=== PATIENT | male | born 2000 | race Caucasian/White ===

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

== ENCOUNTER 2021-01-17 16:07 | Emergency (ER) | payer SELFPAY ==
[2021-01-17 16:17] VITALS: BP 134/100; PULSE 121; TEMP 37.4; O2SAT 100
--- NOTE | 2021-01-17 16:27 | ED.GENADUL_ITS ---
Discharge Plan Disposition Patient Disposition: HOME Condition: Improving Discharge Details Chief Complaint: Fever Clinical Impression: COVID-19 Primary Care Provider: Unknown,Unknown ED Provider: Randell Cole Home Meds and New Rx's Prescriptions: No Action epinephrine [EpiPen 2-Carlos] 0.3 MG/0.3 ML auto-injector 0.3 mg IM ONCE PRNQty: 1 RF: 1 ondansetron 4 mg tablet,disintegrating 4 mg PO Q8H PRN (Reason: nausea and vomiting) Qty: 10 RF: 0 diphenhydramine HCl [Benadryl] 25 MG capsule 25 mg PO Q6H Qty: 25 RF: 0 Discharge Instructions Instructions: COVID-19 (Coronavirus Disease 2019) (ED), COVID-19: Slow the Coronavirus Spread (ED) Additional Instructions: You were seen in the emergency department today for evaluation of fevers and aches. This is most likely due to COVID-19. Your test will come back in a few days. Stay well-hydrated at home. Take 650 mg of acetaminophen (Tylenol) every 6 hours as needed for discomfort. You can also take 400 mg of ibuprofen every 6 hours as needed. return to the emergency department immediately if you develop any Difficulty breathing, passing out, or for any other concerning or worsening symptoms at all. Medical Decision Making This patient is a 20-year-old male who presents to the emergency department with chief complaint of fever, chills, body aches. Based on the history, exam, this is most likely due to COVID-19. Chest x-ray does not reveal pneumonia. Blood work is fairly unremarkable except for a mild elevation of lactic acid. This is likely due to the fact that he has not had much to drink today and is likely dehydrated. He was given IV fluids, ketorolac, and will be discharged home. He will be provided return precautions, discharge instructions and will need to isolate at home until his Covid test comes back, which will likely come back positive then he will need to isolate until asymptomatic. He agrees with this outpatient treatment plan. He did not meet criteria to get monoclonal antibodies at this time. Medical Records Medical records reviewed: Yes I reviewed the patient's medical records. Lab Data Lab results reviewed: Yes I reviewed the patient's lab results. HPI This patient is a 20-year-old male who presents to the emergency department with chief complaint of fever and chills that started this morning.Nothing has made him feel better or worse. He describes aches across his whole body. He denies dysuria, nausea, vomiting, diarrhea. He is not vaccinated for Covid. Symptoms are severe. They do not radiate. They have been constant since they started. General Date/Time Provider Initiated Documentation: 01/17/21 16:12 . Related Data Home Medications Medication Instructions Recorded Confirmed epinephrine [EpiPen 2-Carlos] 0.3 mg IM ONCE PRN #1 pack 10/08/16 08/03/19 diphenhydramine HCl [Benadryl] 25 mg PO Q6H #25 cap 09/27/17 08/03/19 ondansetron 4 mg PO Q8H PRN #10 tab 02/23/19 08/03/19 Previous Rx's Medication Instructions Recorded diphenhydramine HCl [Benadryl] 25 mg PO Q6H #25 cap 09/27/17 ondansetron 4 mg PO Q8H PRN #10 tab 02/23/19 Allergies Allergy/AdvReac Type Severity Reaction Status Date / Time venom-honey bee Allergy Severe BREATHING Unverified 01/17/21 16:23 [bee venom (honey bee)] PROBLEMS General Stated Complaint: Fever LEOBARDO: 3 Review of Systems All systems reviewed & are unremarkable except as noted in HPI and below PFSH Medical History Bee sting allergy swelling and resp symptoms- has epipen Closed fracture of nasal bones closed reduction 12/07/2009 Constipation Dental caries Fracture of metacarpal base of right hand, closed (06/01/19) Right wrist fracture Surgical History Circumcision History of rhinoplasty Repair, Dental Caries Family History Father Asthma Other Personal history of malignant neoplasm Other Personal history of malignant neoplasm Grandfather Cerebrovascular disease Social History Smoking/Tobacco Use Status: Never Smoking risk assessment performed?: Yes Alcohol Intake: current Alcohol Intake frequency: holidays/special occasions only Alcohol type: beer Drug use: Never Substance use type: does not use Current gender identity: male Do you feel safe at home: Yes Do you feel safe in your relationship?: Yes Exam Const General: cooperative and no acute distress Orientation: alert and awake HENMT Head: normal to inspection and normocephalic Eyes EOM: EOM intact bilaterally Neck Neck: full ROM and no meningeal signs Resp Effort & Inspection: normal respiratory effort Auscultation: clear to auscultation bilaterally Cardio Rate: regular rate Rhythm: regular rhythm Heart Sounds: S1 normal, S2 normal, no murmurs and no rubs Pulses: radial pulses present GI Palpation: soft, no hepatosplenomegaly, nontender and other Skin General skin exam: other (warm, dry.) Neuro General: patient alert, patient awake and moves all extremities Extrem General: normal to inspection and full ROM Course Vital Signs Vital signs: Vital Signs Temperature 37.4 C 01/17/21 16:17 Pulse 121 H 01/17/21 16:17 Blood Pressure 134/100 H 01/17/21 16:17 Pulse Oximetry 100 01/17/21 16:17 Temperature 37.4 C 01/17/21 16:17 Pulse 121 H 01/17/21 16:17 Respiratory Effort Non-Labored 01/17/21 16:20 Blood Pressure 134/100 H 01/17/21 16:17 Blood Pressure Position Sitting 01/17/21 16:17 Pulse Oximetry 100 01/17/21 16:17 Oxygen Delivery Method Room Air 01/17/21 16:17 Oxygen Flow Rate 0 01/17/21 16:17 Pain Level 8 01/17/21 16:17 Lab/Test Results Lab/Test Results: 01/17/21 16:24 Blood Blood Culture - Pending 01/17/21 16:24 Blood Blood Culture - Pending PAWSS Have you Been Recently Intoxicated or Drunk Within the Last 30 days?: Yes Have you Ever Experienced Previous Episodes of Alcohol Withdrawal?: No Have you ever Experienced Withdrawal Seizures?: No Have you ever Experienced Delirium Tremens(DT)s?: No Have you ever undergone Alcohol Rehabilitation Treatment (i.e, inpt ot outpatient treatment programs)?: No Have you ever Experienced Blackouts?: No Have you ever Combined Alcohol with other Downers within the last 90 days?: No Have you ever Combined Alcohol with any other Substance of Abuse during the last 90 days?: No Positive Blood Alcohol level on Presentation? [PCS.BAL]: No Evidence of Increased Autonomic Activity (i.e. HR>120, tremor, sweating, agitation, nausea)?: No Result: 1
--- NOTE | 2021-01-17 16:30 | DI.RAD_ITS ---
Exam(s) XR PORTABLE CHEST AP EXAM: XR PORTABLE CHEST AP CLINICAL HISTORY: fever.. TECHNIQUE: 2D digital imaging was performed. COMPARISON: CR RIGHT SHOULDER COMPLETE from 04/10/2016 FINDINGS: Heart size is upper normal. The mediastinum is not widened. Lungs are clear. No infiltrates nor obvious pleural effusions. IMPRESSION: No acute pulmonary findings on this single AP portable view of the chest. DATA REPOSITORY: RADIATION DOSE DELIVERED: All CT scans at this facility use at least one of these dose optimization techniques: automated exposure control; mA and/or kV adjustment per patient size (includes targeted e xams where dose is matched to clinical indication); or iterative reconstruction.
[2021-01-17] MEDS: Normal Saline 1,000 ML 1000 ML IV (16:54)
[2021-01-17 16:55] LABS: Abs Immature Grans 0.03 10^3/uL (0.0-0.06); Absolute Basophil Count 0.07 10^3/uL (0.0-0.2); Absolute Eosinophil Count 0.29 10^3/uL (0.0-0.7); Absolute Lymphocyte Count 1.04 10^3/uL (1.2-3.4); Absolute Monocyte Count 1.04 10^3/uL (0.1-0.8); Absolute Neutrophil Count 7.14 10^3/uL (1.2-6.7); Basophils % 0.7; HCT 49.3 % (40.0-50.0); HGB 17.7 g/dL (13.5-17.5); Immature Grans % 0.3; Lymphocytes % 10.8; MCHC 35.9 % (32.0-36.0); MCV 83.6 fL (80-95); MPV 10.8 fL (8.0-11.0); Monocytes % 10.8; Neutrophils % 74.4; Nucleated RBC 0 %; Platelet Count 193 10^3/uL (130-400); RDW 11.4 % (11.8-14.1); RDW-SD 34.5 fL; WBC 9.61 10^3/uL (4.4-10.8)
[2021-01-17] MEDS: Normal Saline Flush 10 ML SYR IVP (16:55)
[2021-01-17] MEDS: Ketorolac 15 MG/ML VIAL IVP (16:55)
[2021-01-17 17:07] LABS: ALT 24 U/L (16-63); AST 21 U/L (15-37); Albumin 4.8 g/dL (3.4-5.0); Alkaline Phosphatase 87 U/L (46-116); Anion Gap 12.2 mmol/L (3-11); BUN 10 mg/dL (7-18); Bilirubin, Total 2.6 mg/dL (0.2-1.0); CO2 26.8 mmol/L (21.0-32.0); CREATININE 0.9 mg/dL (0.70-1.30); Calcium 9.6 mg/dL (8.5-10.1); Chloride 101 mmol/L (98-107); Glucose 89 mg/dL (74-106); Sodium 140 mmol/L (136-145); Total Protein 8.6 g/dL (6.4-8.2)
[2021-01-17 18:05] LABS: Bilirubin Negative (Negative); Blood Negative (Negative); Clarity Clear (Clear); Glucose Negative (Negative); Ketones Negative (Negative); Leukocyte Esterase Negative (Negative); Nitrite Negative (Negative); pH 8.5 (5-8)
--- NOTE | 2021-01-17 18:21 | DI.VRAD_ITS ---
PROCEDURE INFORMATION: Exam: XR Chest Exam date and time: 01/17/2021 4:34 PM Age: 20 years old Clinical indication: Fever TECHNIQUE: Imaging protocol: XR of the chest. Views: 1 view. COMPARISON: CT CHEST/ABD WO 10/26/2018 9:05 PM FINDINGS: Lungs: No mass. No consolidation. Pleural spaces: Unremarkable. No pleural effusion. No pneumothorax. Heart/Mediastinum: Unremarkable cardiomediastinal silhouette. No cardiomegaly. Bones/joints: Unremarkable. IMPRESSION: No evidence for acute cardiopulmonary disease. Dictated and Authenticated by: Zach Powers MD. Ordering:GAYLE Mejias MD
[2021-01-17 18:36] VITALS: BP 124/67; PULSE 86; RESP 16; O2SAT 96
[2021-01-19 10:27] LABS: COVID-19 RT-PCR UVMMC Result Negative (Negative)
--- NOTE | 2021-01-19 11:33 | NUR.NOTE ---
Nursing Note: Returned call from pt regarding COVID status- pt'd identity confirmed, and was made aware that labs have not yet been resulted. Pt aware he will receive call when they have resulted.
--- NOTE | 2021-01-20 10:32 | NUR.NOTE ---
negative flu and covid result relayed to pt via phone.Nursing Note:
== END 2021-01-17 18:39 | disposition home or self-care (01) ==
PROVIDERS: Emergency Provider Emergency Medicine
DX: U07.1 COVID-19 (principal); M79.10 Myalgia, unspecified site; R50.9 Fever, unspecified; Z20.822 Contact with and (suspected) exposure to COVID-19
CPT/HCPCS: 36415; 80053; 87040; 87449; 87880; 96361; 96374; 99284; U0003; 71045; 81003; 83605; 85025; 87081; 99285; J1885

== ENCOUNTER 2021-06-30 17:39 | Emergency (ER) | payer SELFPAY ==
[2021-06-30 17:48] VITALS: BP 111/67; PULSE 110; RESP 18; TEMP 37.5; O2SAT 99
[2021-06-30 18:35] LABS: Lactate 1.1 mmol/L (0.6-1.4)
[2021-06-30 18:36] LABS: Abs Immature Grans 0.01 10^3/uL (0.0-0.06); Absolute Basophil Count 0.04 10^3/uL (0.0-0.2); Absolute Eosinophil Count 0.02 10^3/uL (0.0-0.7); Absolute Lymphocyte Count 0.31 10^3/uL (1.2-3.4); Absolute Monocyte Count 0.79 10^3/uL (0.1-0.8); Absolute Neutrophil Count 2.52 10^3/uL (1.2-6.7); Basophils % 1.1; Eosinophils % 0.5; HCT 43.5 % (40.0-50.0); HGB 15.4 g/dL (13.5-17.5); Immature Grans % 0.3; Lymphocytes % 8.4; MCH 29.9 pg (27.0-33.0); MCHC 35.4 % (32.0-36.0); MCV 84.5 fL (80-95); MPV 10.8 fL (8.0-11.0); Monocytes % 21.4; Neutrophils % 68.3; Nucleated RBC 0 %; Platelet Count 155 10^3/uL (130-400); RBC 5.15 10^6/uL (4.36-5.78); RDW 11.5 % (11.8-14.1); RDW-SD 35.2 fL; WBC 3.69 10^3/uL (4.4-10.8)
[2021-06-30] MEDS: Normal Saline 1,000 ML 1000 ML IV (18:42)
[2021-06-30] MEDS: Ondansetron 4 MG/2 ML VIAL IVP (18:43)
[2021-06-30 18:44] VITALS: RESP 18
[2021-06-30] MEDS: Normal Saline Flush 10 ML SYR IVP (18:44)
[2021-06-30] MEDS: ACETAMINOPHEN 1,000 MG/100 ML BTL 400 MG IVPB (18:44)
[2021-06-30 18:47] LABS: Lipase 60 U/L (73-393); Magnesium 1.9 mg/dL (1.8-2.4)
[2021-06-30 18:52] LABS: COVID-19 PCR Negative (Negative); Influenza A PCR Positive (Negative); Influenza B PCR Negative (Negative); RSV PCR Negative (Negative)
[2021-06-30 18:54] LABS: Bilirubin Negative (Negative); Blood Negative (Negative); Clarity Clear (Clear); Glucose Negative (Negative); Ketones 15 mg/dL (Negative); Leukocyte Esterase Negative (Negative); Nitrite Negative (Negative); Specific Gravity 1.015 (1.005-1.025); Urobilinogen 0.2 EU/dL (Up TO 0.2)
[2021-06-30 18:57] LABS: ALT 23 U/L (16-63); AST 16 U/L (15-37); Albumin 4.4 g/dL (3.4-5.0); Alkaline Phosphatase 64 U/L (46-116); Anion Gap 9.5 mmol/L (3-11); BUN 9 mg/dL (7-18); CO2 26.5 mmol/L (21.0-32.0); Calcium 8.7 mg/dL (8.5-10.1); Chloride 103 mmol/L (98-107); Glucose 98 mg/dL (74-106); Potassium 3.4 mmol/L (3.5-5.1); Sodium 139 mmol/L (136-145); Total Protein 7.7 g/dL (6.4-8.2)
--- NOTE | 2021-06-30 19:07 | ED.GENADUL_ITS ---
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 If you have any significant worsening of symptoms such as uncontrollable vomiting, inability to tolerate fluid intake, or further concerns feel free to return to emergency department for reassessment. Otherwise you should improve over the next week if you take no medication and if you take the prescribed antiviral med typically people start showing signs of improvement within 48 hours. You will need to take this medication immediately tomorrow otherwise it will be ineffective as it is time sensitive. If not improving in the next week please follow-up with your primary care provider for reassessment. Stand Alone Forms: Work Release Discharge Data Discharge Date/Time-TO BE ENTERED AT DEPARTURE: 06/30/21 20:02 Medical Decision Making Patient presenting to the emergency department with chief complaint of fever, body aches, and some vomiting that is started today. Patient does state that he did take home Covid test which was negative denies other sick contacts. Physical exam shows a acutely ill 21-year-old male that is nontoxic, tachycardic, otherwise nonfocal unremarkable examination. Suspect viral etiology but given tachycardia, fever, and vomiting we will plan on checking labs and viral swab. Review of labs show positive influenza A, decrease WBC and lymphocyte which is consistent with diagnosis, normal lactate, slightly low potassium and mild elevated bilirubin otherwise nondiagnostic labs. Reassessed patient and patient does state improvement of symptoms after receiving IV Tylenol and fluids. Discussed with patient risk versus benefit of antiviral therapy and patient was prescribed Xofluza. Return and follow cautions were discussed. After di scussion of diagnosis and plan of care patient has no further needs, questions, or concerns and states clear understanding to return to the emergency department for any worsening symptoms. Lab Data Lab results reviewed: Yes I reviewed the patient's lab results. Labs: Laboratory Tests Range/Units 06/30/21 06/30/21 06/30/21 18:10 18:28 18:28 WBC (4.4-10.8) 10^3/uL RBC (4.36-5.78) 10^6/uL Hgb (13.5-17.5) g/dL Hct (40.0-50.0) % MCV (80-95) fL MCH (27.0-33.0) pg MCHC (32.0-36.0) % RDW (11.8-14.1) % Plt Count (130-400) 10^3/uL MPV (8.0-11.0) fL Immature Gran % Neutrophils % Lymphocytes % Monocytes % Eosinophils % Basophils % Nucleated RBC % % Absolute Neutrophils (1.2-6.7) 10^3/uL Absolute Lymphocytes (1.2-3.4) 10^3/uL Absolute Monocytes (0.1-0.8) 10^3/uL Absolute Eosinophils (0.0-0.7) 10^3/uL Absolute Basophils (0.0-0.2) 10^3/uL VBG Lactate (0.6-1.4) mmol/L 1.1 Sodium (136-145) mmol/L Potassium (3.5-5.1) mmol/L Chloride (98-107) mmol/L Carbon Dioxide (21.0-32.0) mmol/L Anion Gap (3-11) mmol/L BUN (7-18) mg/dL Creatinine (0.70-1.30) mg/dL Estimated GFR/1.73 m2 (mL/min/1.73m2) Glucose (74-106) mg/dL Calcium (8.5-10.1) mg/dL Magnesium (1.8-2.4) mg/dL 1.9 Total Bilirubin (0.2-1.0) mg/dL AST (15-37) U/L ALT (16-63) U/L Alkaline Phosphatase (46-116) U/L Total Protein (6.4-8.2) g/dL Albumin (3.4-5.0) g/dL Lipase (73-393) U/L 60 Urine Color (Yellow) Urine Clarity (Clear) Urine pH (5-8) Ur Specific [place] (1.005-1.025) Urine Protein (Negative) mg/dL Urine Ketones (Negative) mg/dL Urine Blood (Negative) Urine Nitrite (Negative) Urine Bilirubin (Negative) Urine Urobilinogen (Up TO 0.2) EU/dL Ur Leukocyte Esterase (Negative) Urine Glucose (Negative) mg/dL COVID-19 Source Not Applicable SARS-CoV-2 (PCR) (Negative) Negative Influenza Type A (PCR) (Negative) Positive A Influenza Type B (PCR) (Negative) Negative RSV (PCR) (Negative) Negative Range/Units 06/30/21 06/30/21 06/30/21 18:28 18:28 18:42 WBC (4.4-10.8) 10^3/uL 3.69 L RBC (4.36-5.78) 10^6/uL 5.15 Hgb (13.5-17.5) g/dL 15.4 Hct (40.0-50.0) % 43.5 MCV (80-95) fL 84.5 MCH (27.0-33.0) pg 29.9 MCHC (32.0-36.0) % 35.4 RDW (11.8-14.1) % 11.5 L Plt Count (130-400) 10^3/uL 155 MPV (8.0-11.0) fL 10.8 Immature Gran % 0.3 Neutrophils % 68.3 Lymphocytes % 8.4 Monocytes % 21.4 Eosinophils % 0.5 Basophils % 1.1 Nucleated RBC % % 0 Absolute Neutrophils (1.2-6.7) 10^3/uL 2.52 Absolute Lymphocytes (1.2-3.4) 10^3/uL 0.31 L Absolute Monocytes (0.1-0.8) 10^3/uL 0.79 Absolute Eosinophils (0.0-0.7) 10^3/uL 0.02 Absolute Basophils (0.0-0.2) 10^3/uL 0.04 VBG Lactate (0.6-1.4) mmol/L Sodium (136-145) mmol/L 139 Potassium (3.5-5.1) mmol/L 3.4 L Chloride (98-107) mmol/L 103 Carbon Dioxide (21.0-32.0) mmol/L 26.5 Anion Gap (3-11) mmol/L 9.5 BUN (7-18) mg/dL 9 Creatinine (0.70-1.30) mg/dL 1.0 Estimated GFR/1.73 m2 (mL/min/1.73m2) >= 60.00 Glucose (74-106) mg/dL 98 Calcium (8.5-10.1) mg/dL 8.7 Magnesium (1.8-2.4) mg/dL Total Bilirubin (0.2-1.0) mg/dL 2.0 H AST (15-37) U/L 16 ALT (16-63) U/L 23 Alkaline Phosphatase (46-116) U/L 64 Total Protein (6.4-8.2) g/dL 7.7 Albumin (3.4-5.0) g/dL 4.4 Lipase (73-393) U/L Urine Color (Yellow) Yellow Urine Clarity (Clear) Clear Urine pH (5-8) 7.0 Ur Specific [place] (1.005-1.025) 1.015 Urine Protein (Negative) mg/dL Negative Urine Ketones (Negative) mg/dL 15 H Urine Blood (Negative) Negative Urine Nitrite (Negative) Negative Urine Bilirubin (Negative) Negative Urine Urobilinogen (Up TO 0.2) EU/dL 0.2 Ur Leukocyte Esterase (Negative) Negative Urine Glucose (Negative) mg/dL Negative COVID-19 Source SARS-CoV-2 (PCR) (Negative) Influenza Type A (PCR) (Negative) Influenza Type B (PCR) (Negative) RSV (PCR) (Negative) HPI General Mode of arrival: ambulatory . Date/Time Provider Initiated Documentation: 06/30/21 17:57 . Limitations to Documentation: no limitations . Information obtained by: patient . History of Present Illness 21 year old M presents to the emergency department with the chief complaint of Fever chills body aches and vomiting, described as moderate, with intensity rated at 8. Quality is described as aching, Patient reports no radiation. Patient started experiencing this day(s) (1) and it has been constant. improves with No relieving factors improve symptom(s), No exacerbating factors reported . Patient notes fever/chills, loss of appetite, malaise and nausea/vomiting; denies chest pain, cough and rash. Patient did receive the following treatments prior to arrival, NSAID Related Data Home Medications Medication Instructions Recorded Confirmed epinephrine 0.3 mg/0.3 mL 0.3 mg IM ONCE PRN #1 pack 10/08/16 06/30/21 injection, auto-injector (EpiPen 2-Carlos) diphenhydramine HCl 25 mg capsule 25 mg PO Q6H #25 cap 09/27/17 08/03/19 (Benadryl) baloxavir marboxil 40 mg tablet 40 mg PO ONCE #1 tab 06/30/21 (Xofluza) ondansetron 4 mg disintegrating 4 mg PO Q8H PRN #10 tab 06/30/21 tablet Previous Rx's Medication Instructions Recorded diphenhydramine HCl 25 mg capsule 25 mg PO Q6H #25 cap 09/27/17 (Benadryl) baloxavir marboxil 40 mg tablet 40 mg PO ONCE #1 tab 06/30/21 (Xofluza) ondansetron 4 mg disintegrating 4 mg PO Q8H PRN #10 tab 06/30/21 tablet Allergies Allergy/AdvReac Type Severity Reaction Status Date / Time venom-honey bee Allergy Severe BREATHING Unverified 06/30/21 17:51 [bee venom (honey bee)] PROBLEMS General Stated Complaint: GenMedical LEOBARDO: 3 Review of Systems Constitutional Constitutional: Reports body ache(s), Reports chills, Reports fever(s), Reports headache(s) and Reports malaise ENT Ears, Nose, Mouth, and Throat: Reports as per HPI, Denies ear discharge, Denies otalgia, Reports headache(s), Reports nasal congestion, Reports nasal discharge, Denies neck pain, Denies sore throat and Denies throat swelling Cardiovascular Cardiovascular: Denies chest pain and Denies dyspnea Respiratory Respiratory: Reports cough and Denies dyspnea Gastrointestinal Gastrointestinal: Denies abdominal pain, Reports nausea and Reports vomiting Musculoskeletal Musculoskeletal: Denies joint swelling and Denies neck pain Integumentary/Breasts Skin/Breast: Denies rash Neurologic Neurologic: Reports headache(s) Allergic/Immunologic Allergic/Immunologic: Denies throat swelling PFSH All Active Problems (Updated 06/30/21 @ 19:43 by Ash Zuluaga NP) COVID-19 (Acute) Influenza A (Acute) Fracture of metacarpal base of right hand, closed (Acute 06/01/19) Routine child health exam (Acute 08/05/11) Normal weight, pediatric, BMI 5th to 84th percentile for age (Acute 11/03/14) Bee sting allergy (Acute 11/19/16) Closed displaced fracture of middle phalanx of left little finger (Acute 12/10/17) Medical History Bee sting allergy swelling and resp symptoms- has epipen Closed fracture of nasal bones closed reduction 12/07/2009 Constipation Dental caries Right wrist fracture Surgical History Circumcision History of rhinoplasty Repair, Dental Caries Family History Father Asthma Other Personal history of malignant neoplasm Other Personal history of malignant neoplasm Grandfather Cerebrovascular disease Social History Smoking/Tobacco Use Status: Never Smoking risk assessment performed?: Yes Alcohol Intake: current Alcohol Intake frequency: holidays/special occasions only Alcohol type: beer Drug use: Rarely Substance use type: marijuana Current gender identity: male Do you feel safe at home: Yes Do you feel safe in your relationship?: Yes Exam Const General: cooperative, comfortable, no acute distress and ill appearing acutely Orientation: alert and awake [facility] Head: normal to inspection, normocephalic and atraumatic Ears: hearing grossly normal bilaterally Mouth: no muffled voice Neck Neck: normal visual inspection, full ROM, no meningeal signs and trachea midline Resp Effort & Inspection: normal respiratory effort and able to speak in complete sentences Auscultation: clear to auscultation bilaterally Cardio Rate: tachycardic Rhythm: regular rhythm Heart Sounds: S1 normal, S2 normal, normal S1 and S2, no click, no gallops, no murmurs and no rubs GI Inspection: normal to inspection Palpation: soft, not firm, no guarding, not rigid and nontender Auscultation: normal bowel sounds Skin General skin exam: no rashes or lesions noted and dry skin (warm) Neuro General: patient alert, patient awake, patient oriented x3, gait normal and moves all extremities Cognition: normal cognition Speech: speech normal Course Vital Signs Vital signs: Vital Signs Temperature 37.5 C 06/30/21 17:48 Pulse 110 H 06/30/21 17:48 Respiratory Rate 18 06/30/21 17:48 Blood Pressure 111/67 06/30/21 17:48 Pulse Oximetry 99 06/30/21 17:48 Temperature 37.5 C 06/30/21 17:48 Temperature Source Temporal Artery Scan 06/30/21 17:48 Pulse 110 H 06/30/21 17:48 Respiratory Rate 18 06/30/21 18:44 Respiratory Effort Non-Labored 06/30/21 18:44 Respiratory Depth Normal 06/30/21 18:44 Respiratory Pattern Normal 06/30/21 18:44 Blood Pressure 111/67 06/30/21 17:48 Blood Pressure Position Sitting 06/30/21 17:48 Pulse Oximetry 99 06/30/21 17:48 Oxygen Delivery Method Room Air 06/30/21 17:48 Oxygen Flow Rate 0 06/30/21 17:48 Lab/Test Results Lab/Test Results: Laboratory Tests Range/Units 06/30/21 06/30/21 06/30/21 18:10 18:28 18:28 WBC (4.4-10.8) 10^3/uL RBC (4.36-5.78) 10^6/uL Hgb (13.5-17.5) g/dL Hct (40.0-50.0) % MCV (80-95) fL MCH (27.0-33.0) pg MCHC (32.0-36.0) % RDW (11.8-14.1) % Plt Count (130-400) 10^3/uL MPV (8.0-11.0) fL Immature Gran % Neutrophils % Lymphocytes % Monocytes % Eosinophils % Basophils % Nucleated RBC % % Absolute Neutrophils (1.2-6.7) 10^3/uL Absolute Lymphocytes (1.2-3.4) 10^3/uL Absolute Monocytes (0.1-0.8) 10^3/uL Absolute Eosinophils (0.0-0.7) 10^3/uL Absolute Basophils (0.0-0.2) 10^3/uL VBG Lactate (0.6-1.4) mmol/L 1.1 Sodium (136-145) mmol/L Potassium (3.5-5.1) mmol/L Chloride (98-107) mmol/L Carbon Dioxide (21.0-32.0) mmol/L Anion Gap (3-11) mmol/L BUN (7-18) mg/dL Creatinine (0.70-1.30) mg/dL Estimated GFR/1.73 m2 (mL/min/1.73m2) Glucose (74-106) mg/dL Calcium (8.5-10.1) mg/dL Magnesium (1.8-2.4) mg/dL 1.9 Total Bilirubin (0.2-1.0) mg/dL AST (15-37) U/L ALT (16-63) U/L Alkaline Phosphatase (46-116) U/L Total Protein (6.4-8.2) g/dL Albumin (3.4-5.0) g/dL Lipase (73-393) U/L 60 Urine Color (Yellow) Urine Clarity (Clear) Urine pH (5-8) Ur Specific [place] (1.005-1.025) Urine Protein (Negative) mg/dL Urine Ketones (Negative) mg/dL Urine Blood (Negative) Urine Nitrite (Negative) Urine Bilirubin (Negative) Urine Urobilinogen (Up TO 0.2) EU/dL Ur Leukocyte Esterase (Negative) Urine Glucose (Negative) mg/dL COVID-19 Source Not Applicable SARS-CoV-2 (PCR) (Negative) Negative Influenza Type A (PCR) (Negative) Positive A Influenza Type B (PCR) (Negative) Negative RSV (PCR) (Negative) Negative Range/Units 06/30/21 06/30/21 06/30/21 18:28 18:28 18:42 WBC (4.4-10.8) 10^3/uL 3.69 L RBC (4.36-5.78) 10^6/uL 5.15 Hgb (13.5-17.5) g/dL 15.4 Hct (40.0-50.0) % 43.5 MCV (80-95) fL 84.5 MCH (27.0-33.0) pg 29.9 MCHC (32.0-36.0) % 35.4 RDW (11.8-14.1) % 11.5 L Plt Count (130-400) 10^3/uL 155 MPV (8.0-11.0) fL 10.8 Immature Gran % 0.3 Neutrophils % 68.3 Lymphocytes % 8.4 Monocytes % 21.4 Eosinophils % 0.5 Basophils % 1.1 Nucleated RBC % % 0 Absolute Neutrophils (1.2-6.7) 10^3/uL 2.52 Absolute Lymphocytes (1.2-3.4) 10^3/uL 0.31 L Absolute Monocytes (0.1-0.8) 10^3/uL 0.79 Absolute Eosinophils (0.0-0.7) 10^3/uL 0.02 Absolute Basophils (0.0-0.2) 10^3/uL 0.04 VBG Lactate (0.6-1.4) mmol/L Sodium (136-145) mmol/L 139 Potassium (3.5-5.1) mmol/L 3.4 L Chloride (98-107) mmol/L 103 Carbon Dioxide (21.0-32.0) mmol/L 26.5 Anion Gap (3-11) mmol/L 9.5 BUN (7-18) mg/dL 9 Creatinine (0.70-1.30) mg/dL 1.0 Estimated GFR/1.73 m2 (mL/min/1.73m2) >= 60.00 Glucose (74-106) mg/dL 98 Calcium (8.5-10.1) mg/dL 8.7 Magnesium (1.8-2.4) mg/dL Total Bilirubin (0.2-1.0) mg/dL 2.0 H AST (15-37) U/L 16 ALT (16-63) U/L 23 Alkaline Phosphatase (46-116) U/L 64 Total Protein (6.4-8.2) g/dL 7.7 Albumin (3.4-5.0) g/dL 4.4 Lipase (73-393) U/L Urine Color (Yellow) Yellow Urine Clarity (Clear) Clear Urine pH (5-8) 7.0 Ur Specific [place] (1.005-1.025) 1.015 Urine Protein (Negative) mg/dL Negative Urine Ketones (Negative) mg/dL 15 H Urine Blood (Negative) Negative Urine Nitrite (Negative) Negative Urine Bilirubin (Negative) Negative Urine Urobilinogen (Up TO 0.2) EU/dL 0.2 Ur Leukocyte Esterase (Negative) Negative Urine Glucose (Negative) mg/dL Negative COVID-19 Source SARS-CoV-2 (PCR) (Negative) Influenza Type A (PCR) (Negative) Influenza Type B (PCR) (Negative) RSV (PCR) (Negative) PAWSS Have you Been Recently Intoxicated or Drunk Within the Last 30 days?: Yes Have you Ever Experienced Previous Episodes of Alcohol Withdrawal?: No Have you ever Experienced Withdrawal Seizures?: No Have you ever Experienced Delirium Tremens(DT)s?: No Have you ever undergone Alcohol Rehabilitation Treatment (i.e, inpt ot outpatient treatment programs)?: No Have you ever Experienced Blackouts?: Yes Have you ever Combined Alcohol with other Downers within the last 90 days?: No Have you ever Combined Alcohol with any other Substance of Abuse during the last 90 days?: Yes Positive Blood Alcohol level on Presentation? [PCS.BAL]: No Evidence of Increased Autonomic Activity (i.e. HR>120, tremor, sweating, agitation, nausea)?: No Result: 4
[2021-06-30 20:00] VITALS: BP 111/58; PULSE 111; RESP 18; O2SAT 97
[2021-06-30] MEDS: Potassium Chloride 10 MEQ TABCR PO (20:01)
== END 2021-06-30 20:02 | disposition home or self-care (01) ==
PROVIDERS: Emergency Provider Nurse Practitioner Family
DX: J10.1 Influenza due to other identified influenza virus with other respiratory manifestations (principal); Z20.822 Contact with and (suspected) exposure to COVID-19; R50.9 Fever, unspecified
CPT/HCPCS: 80053; 83690; 87637; 99283; 81003; 83605; 83735; 85025; J0131; J2405

== ENCOUNTER 2022-06-03 12:40 | Emergency (ER) | payer SELFPAY ==
[2022-06-03 12:50] VITALS: BP 136/80; PULSE 94; RESP 20; TEMP 36.9; O2SAT 98
[2022-06-03 13:01] VITALS: BP 128/87; PULSE 80; O2SAT 100
[2022-06-03] MEDS: Lactated Ringers 1,000 ML 1000 ML IV (13:24)
[2022-06-03] MEDS: Ondansetron 4 MG/2 ML VIAL IVP (13:24)
[2022-06-03 13:31] VITALS: BP 113/71; PULSE 72; O2SAT 100
[2022-06-03 13:31] LABS: Abs Immature Grans 0.02 10^3/uL (0.0-0.06); Absolute Basophil Count 0.05 10^3/uL (0.0-0.2); Absolute Eosinophil Count 0.07 10^3/uL (0.0-0.7); Absolute Lymphocyte Count 1.36 10^3/uL (1.2-3.4); Absolute Monocyte Count 0.76 10^3/uL (0.1-0.8); Absolute Neutrophil Count 2.29 10^3/uL (1.2-6.7); Basophils % 1.1; Eosinophils % 1.5; HCT 47.9 % (40.0-50.0); HGB 17.3 g/dL (13.5-17.5); Immature Grans % 0.4; Lymphocytes % 29.9; MCH 29.9 pg (27.0-33.0); MCHC 36.1 % (32.0-36.0); MCV 83 fL (80-95); Monocytes % 16.7; Neutrophils % 50.4; Platelet Count 186 10^3/uL (130-400); RBC 5.78 10^6/uL (4.36-5.78); RDW 11.9 % (11.8-14.1); RDW-SD 35.8 fL; WBC 4.55 10^3/uL (4.4-10.8)
--- NOTE | 2022-06-03 13:33 | DI.CT_ITS ---
Exam(s) CT CHEST/ABD/PEL W EXAM: CT CHEST/ABD/PEL W CLINICAL HISTORY: left sided abd pain severe, vomiting, diarrhea TECHNIQUE: Imaging Protocol: Axial computed tomography images with coronal and sagittal reformatted images were created and reviewed CONTRAST MATERIAL: Intravenous: Omnipaque 350 contrast volume:90 mL Oral: No COMPARISON: CT CT thoracic lumbar spine wo from 10/26/[address] CHEST/ABD WO from 10/26/2018 FINDINGS: CHEST: Tracheobronchial tree: Patent where visualized. Pulmonary parenchyma: No consolidation or dominant measurable mass. No architectural distortion. Visualized thyroid gland: Unremarkable. Mediastinum and [place]ira: No dominant adenopathy or fluid collection. The esophagus is unremarkable. Pleura: No effusion or pneumothorax. Heart: The heart is not dilated. No coronary artery calcifications are seen. No pericardial effusion. Pulmonary arteries: Not adequately opacified for evaluation of pulmonary emboli. 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 The thoracic aorta is of normal caliber. Lymph nodes: Within normal limits. Soft tissues: Unremarkable. Bones:Within normal limits for the patient's age. ABDOMEN: Liver: Normal density. No measurable mass. Portal, Superior Mesenteric, and Splenic Veins: Unremarkable. Gallbladder and Biliary Tract: No radiodense calculus or dilation. Pancreas: Normal density, no abnormal calcifications or inflammatory process. Spleen: The spleen is enlarged measuring 14 cm. Adrenals: No masses seen. Kidneys: Normal size, contour and axis. No radiodense stones or obstructive uropathy. No masses seen. Abdominal Aorta: Abdominal portion non-dilated. Bowel: No obstruction or bowel wall thickening. No evidence of appendicitis. Peritoneal Cavity: No abdominal ascites. Mild ileum enlarged mesenteric lymph nodes which can be see n with mesenteric adenitis. No free air. Lymph Nodes: Within normal limits. Bones: Within normal limits for the patient's age. Soft Tissues: Unremarkable. PELVIS: Bladder: Symmetric distention, no gross wall thickening. Reproductive Organs: Unremarkable as visualized. Lymph Nodes: Within normal limits. Bones: Within normal limits. IMPRESSION: 1. No acute pulmonary process. 2. Mildly enlarged mesenteric lymph nodes which can be seen with mesenteric adenitis. 3. Mild splenomegaly. 4. Findings were discussed with Dr. Bingham at 3:49 p.m. on 06/03/2022. RADIATION DOSE DELIVERED: 1,068.54mGy.cm Total DLP DATA REPOSITORY: All CT scans at this facility are submitted to the National Radiology Data Registry (NRDR) Dose Index Registry (DIR) with the [employer] (A[employer]). RADIATION OPTIMIZATION: All CT scans at this facility use at least one of these dose optimization te chniques: automated exposure control; mA and/or kV adjustment per patient size (includes targeted exa ms where dose is matched to clinical indication); or iterative reconstruction.
[2022-06-03 13:45] VITALS: BP 117/72; PULSE 72; O2SAT 97
[2022-06-03 13:45] LABS: ALT 34 U/L (16-63); AST 27 U/L (15-37); Albumin 4.2 g/dL (3.4-5.0); Alkaline Phosphatase 73 U/L (46-116); Anion Gap 8.5 mmol/L (3-11); BUN 10 mg/dL (7-18); Bilirubin, Total 2.3 mg/dL (0.2-1.0); CO2 27.5 mmol/L (21.0-32.0); CREATININE 0.9 mg/dL (0.70-1.30); Calcium 9.1 mg/dL (8.5-10.1); Chloride 102 mmol/L (98-107); Estimated GFR 123.84 (mL/min/1.73m2); Glucose 97 mg/dL (74-106); Lipase 24 U/L (16-77); Potassium 3.8 mmol/L (3.5-5.1); Sodium 138 mmol/L (136-145); Total Protein 7.8 g/dL (6.4-8.2)
--- NOTE | 2022-06-03 13:49 | ED.GENADUL_ITS ---
Discharge Plan Disposition Patient Disposition: Home Condition: Stable Discharge Details Clinical Impression: Nausea & vomiting, Abdominal pain Primary Care Provider: None,None ED Provider: Christopher Bingham Home Meds and New Rx's Prescriptions: Continued epinephrine [EpiPen 2-Carlos] 0.3 MG/0.3 ML auto-injector 0.3 mg IM ONCE PRNQty: 1 Rx Instructions: use per allergy plan/drapery hand, one for home and one for school Xofluza 40 mg tablet 40 mg PO ONCE Qty: 1 0RF Rx Instructions: as a single dose ondansetron 4 mg tablet,disintegrating 4 mg PO Q8H PRN (Reason: nausea and vomiting) Qty: 10 0RF diphenhydramine HCl [Benadryl] 25 MG capsule 25 mg PO Q6H Qty: 25 0RF Discharge Instructions Instructions: Acute Nausea and Vomiting (ED), Abdominal Pain (ED) Additional Instructions: Please drink small amounts of fluid often to stay hydrated. Take nausea medicine as prescribed. Please contact your primary care physician to arrange follow-up. Return to the ER immediately for any worsening or new concerning symptoms. Stand Alone Forms: Work Release Medical Decision Making [id number] --22-year-old male here with four days of severe abdominal pain and associated nausea, vomiting and diarrhea. Abdomen tender left lower quadrant. Plan to obtain CT of the abdomen pelvis to assess for acute surgical pathology including perforated diverticulitis. Patient appears dehydrated. I will give IV fluid bolus. Zofran IV for nausea. 1545 --CT of the chest abdomen pelvis interpreted by radiology: Spleen measures upper limit of normal, some mesenteric lymphadenopathy, otherwise negative. Patient reassessed and nausea improved. Patient patient completed IV fluid bolus plan for p.o. challenge and discharge with outpatient follow-up with PCP. -- Usual customary discharge instructions were reviewed with the patient. All results were discussed. Lab Data Lab results reviewed: Yes I reviewed the patient's lab results. Lab results narrative: Laboratory Tests Range/Units 06/03/22 06/03/22 13:20 13:20 WBC (4.4-10.8) 10^3/uL 4.55 RBC (4.36-5.78) 10^6/uL 5.78 Hgb (13.5-17.5) g/dL 17.3 Hct (40.0-50.0) % 47.9 MCV (80-95) fL 83 MCH (27.0-33.0) pg 29.9 MCHC (32.0-36.0) % 36.1 H RDW (11.8-14.1) % 11.9 Plt Count (130-400) 10^3/uL 186 MPV (8.0-11.0) fL 11.0 Immature Gran % 0.4 Neutrophils % 50.4 Lymphocytes % 29.9 Monocytes % 16.7 Eosinophils % 1.5 Basophils % 1.1 Nucleated RBC % (0.0-0.3) % 0.0 Absolute Neutrophils (1.2-6.7) 10^3/uL 2.29 Absolute Lymphocytes (1.2-3.4) 10^3/uL 1.36 Absolute Monocytes (0.1-0.8) 10^3/uL 0.76 Absolute Eosinophils (0.0-0.7) 10^3/uL 0.07 Absolute Basophils (0.0-0.2) 10^3/uL 0.05 Sodium (136-145) mmol/L 138 Potassium (3.5-5.1) mmol/L 3.8 Chloride (98-107) mmol/L 102 Carbon Dioxide (21.0-32.0) mmol/L 27.5 Anion Gap (3-11) mmol/L 8.5 BUN (7-18) mg/dL 10 Creatinine (0.70-1.30) mg/dL 0.9 Est GFR (CKD-EPI 2020) (mL/min/1.73m2) 123.84 Glucose (74-106) mg/dL 97 Calcium (8.5-10.1) mg/dL 9.1 Total Bilirubin (0.2-1.0) mg/dL 2.3 H AST (15-37) U/L 27 ALT (16-63) U/L 34 Alkaline Phosphatase (46-116) U/L 73 Total Protein (6.4-8.2) g/dL 7.8 Albumin (3.4-5.0) g/dL 4.2 Lipase (16-77) U/L 24 HPI General Mode of arrival: ambulatory . Date/Time Provider Initiated Documentation: 06/03/22 12:58 . Limitations to Documentation: no limitations . Information obtained by: patient . HPI Narrative: 22-year-old male presents with chief complaint of abdominal pain. Patient notes abdominal pain started 4 days ago in the middle the night. Pain has persisted. Pain localized diffusely but worse on the left abdomen. He has associated nausea, vomiting and diarrhea over the same period of time. He states recently has been dry heaving has not been able to keep any fluid down. No associated fever. Related Data Home Medications Medication Instructions Recorded Confirmed epinephrine 0.3 mg/0.3 mL 0.3 mg IM ONCE PRN ##1 10/08/16 06/03/22 injection, auto-injector (EpiPen 2-Carlos) diphenhydramine HCl 25 mg capsule 25 mg PO Q6H #25 caps 09/27/17 06/03/22 (Benadryl) baloxavir marboxil 40 mg tablet 40 mg PO ONCE #1 tab 06/30/21 06/03/22 (Xofluza) ondansetron 4 mg disintegrating 4 mg PO Q8H PRN nausea and 06/03/22 tablet vomiting #10 tabs Previous Rx's Medication Instructions Recorded diphenhydramine HCl 25 mg capsule 25 mg PO Q6H #25 caps 09/27/17 (Benadryl) baloxavir marboxil 40 mg tablet 40 mg PO ONCE #1 tab 06/30/21 (Xofluza) ondansetron 4 mg disintegrating 4 mg PO Q8H PRN nausea and 06/03/22 tablet vomiting #10 tabs Allergies Allergy/AdvReac Type Severity Reaction Status Date / Time venom-honey bee Allergy Severe BREATHING Unverified 06/03/22 11:47 [bee venom (honey bee)] PROBLEMS General Stated Complaint: Abd Prob LEOBARDO: 3 Review of Systems All systems reviewed & are unremarkable except as noted in HPI and below Constitutional Constitutional: Denies fever(s) Gastrointestinal Gastrointestinal: Reports as per HPI PFSH All Active Problems (Updated 06/03/22 @ 15:51 by Christopher Bingham MD) COVID-19 (Acute) Nausea & vomiting (Acute) Abdominal pain (Acute) Fracture of metacarpal base of right hand, closed (Acute 06/01/19) Routine child health exam (Acute 08/05/11) Normal weight, pediatric, BMI 5th to 84th percentile for age (Acute 11/03/14) Bee sting allergy (Acute 11/19/16) Closed displaced fracture of middle phalanx of left little finger (Acute 11/22 12/09) Medical History Bee sting allergy swelling and resp symptoms- has epipen Closed fracture of nasal bones closed reduction 12/07/2009 Constipation Dental caries Right wrist fracture Surgical History Circumcision History of rhinoplasty Repair, Dental Caries Family History Father Asthma Other Personal history of malignant neoplasm Other Personal history of malignant neoplasm Grandfather Cerebrovascular disease Social History Smoking/Tobacco Use Status: Never Smoking risk assessment performed?: Yes Alcohol Intake: current Alcohol Intake frequency: holidays/special occasions only Alcohol type: beer Drug use: Rarely Substance use type: marijuana Current gender identity: male Do you feel safe at home: Yes Do you feel safe in your relationship?: Yes Exam Const General: cooperative, no acute distress and other (fatigued) HENMT Mouth: mucous membranes dry Eyes Conjunctivae: normal conjunctivae Sclera: normal sclerae Neck Neck: trachea midline Resp Auscultation: clear to auscultation bilaterally Cardio Rate: regular rate and not tachycardic Rhythm: regular rhythm GI Palpation: soft, not firm, no guarding, no masses, no pulsatile masses, not rigid and tender in the LLQ Auscultation: normal bowel sounds Skin General skin exam: no rashes or lesions noted Neuro General: patient alert, patient awake, patient oriented x3 and tone normal Extrem General: no edema Psych Appearance: grossly normal Mental Status: mental status grossly normal Course Vital Signs Vital signs: Vital Signs Temperature 36.9 C 06/03/22 12:50 Pulse 94 H 06/03/22 12:50 Respiratory Rate 20 06/03/22 12:50 Blood Pressure 136/80 06/03/22 12:50 Pulse Oximetry 98 06/03/22 12:50 Temperature 36.9 C 06/03/22 12:50 Temperature Source Oral 06/03/22 12:50 Pulse 94 H 06/03/22 12:50 Respiratory Rate 20 06/03/22 12:50 Respiratory Effort Normal 06/03/22 12:52 Blood Pressure 136/80 06/03/22 12:50 Blood Pressure Position Sitting 06/03/22 12:50 Pulse Oximetry 98 06/03/22 12:50 Oxygen Delivery Method Room Air 06/03/22 12:50 Oxygen Flow Rate 0 06/03/22 12:50 Pain Level 8 06/03/22 13:11 Lab/Test Results Lab/Test Results: Laboratory Tests Range/Units 06/03/22 06/03/22 13:20 13:20 WBC (4.4-10.8) 10^3/uL 4.55 RBC (4.36-5.78) 10^6/uL 5.78 Hgb (13.5-17.5) g/dL 17.3 Hct (40.0-50.0) % 47.9 MCV (80-95) fL 83 MCH (27.0-33.0) pg 29.9 MCHC (32.0-36.0) % 36.1 H RDW (11.8-14.1) % 11.9 Plt Count (130-400) 10^3/uL 186 MPV (8.0-11.0) fL 11.0 Immature Gran % 0.4 Neutrophils % 50.4 Lymphocytes % 29.9 Monocytes % 16.7 Eosinophils % 1.5 Basophils % 1.1 Nucleated RBC % (0.0-0.3) % 0.0 Absolute Neutrophils (1.2-6.7) 10^3/uL 2.29 Absolute Lymphocytes (1.2-3.4) 10^3/uL 1.36 Absolute Monocytes (0.1-0.8) 10^3/uL 0.76 Absolute Eosinophils (0.0-0.7) 10^3/uL 0.07 Absolute Basophils (0.0-0.2) 10^3/uL 0.05 Sodium (136-145) mmol/L 138 Potassium (3.5-5.1) mmol/L 3.8 Chloride (98-107) mmol/L 102 Carbon Dioxide (21.0-32.0) mmol/L 27.5 Anion Gap (3-11) mmol/L 8.5 BUN (7-18) mg/dL 10 Creatinine (0.70-1.30) mg/dL 0.9 Est GFR (CKD-EPI 2020) (mL/min/1.73m2) 123.84 Glucose (74-106) mg/dL 97 Calcium (8.5-10.1) mg/dL 9.1 Total Bilirubin (0.2-1.0) mg/dL 2.3 H AST (15-37) U/L 27 ALT (16-63) U/L 34 Alkaline Phosphatase (46-116) U/L 73 Total Protein (6.4-8.2) g/dL 7.8 Albumin (3.4-5.0) g/dL 4.2 Lipase (16-77) U/L 24
[2022-06-03] MEDS: Normal Saline - Diluent 50 ML VIAL IJ (15:14)
[2022-06-03] MEDS: Omnipaque 350 MG/ML 500 ML BTL-Imaging package IJ (15:15)
== END 2022-06-03 16:09 | disposition home or self-care (01) ==
PROVIDERS: Emergency Provider Student in an Organized Health Care Education/Training Program
DX: R11.2 Nausea with vomiting, unspecified; R10.9 Unspecified abdominal pain; R19.7 Diarrhea, unspecified
CPT/HCPCS: 36415; 74177; 80053; 83690; 96361; 96365; 96374; 96375; 99284; 99285; 71260; 85025; J2405

== ENCOUNTER 2023-03-26 16:38 | Emergency (ER) | payer BC, SELFPAY ==
[2023-03-26 16:45] VITALS: BP 122/74; PULSE 72; RESP 16; TEMP 36.9; O2SAT 98
--- NOTE | 2023-03-26 16:45 | DI.RAD_ITS ---
Exam(s) XR FINGER RT MIDDLE EXAM: XR FINGER RT MIDDLE CLINICAL HISTORY: R middle finger pain, fx vs tendon injury. TECHNIQUE: 2D digital imaging was performed of the right finger. Three views were obtained. PA/AP, oblique, and lateral views were obtained. COMPARISON: No exams were available for comparison FINDINGS: BONES: No acute fracture is present. No bony destructive lesion is seen. JOINTS: No dislocation present. SOFT TISSUE: Normal. IMPRESSION: No evidence of acute fracture, dislocation, or subluxation. DATA REPOSITORY: RADIATION DOSE DELIVERED:
--- NOTE | 2023-03-26 16:51 | W.ED.GENAD ---
HPI General Stated Complaint: Orthopedic LEOBARDO: 4 Date/Time Provider Initiated Documentation: 03/26/23 16:51. 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 Quality described as pain with movement, pain in MCP knuckle, no radiation to numbness/tingling, bruising, arm pain. Severity is described as 4-5/10. Palliating factors include martha taped with some relief. Provoking factors include nothing specific. Patient is L-hand dominant. Patient not anticoagulated. Related Data Home Medications Medication Instructions Recorded Confirmed epinephrine 0.3 mg/0.3 mL 0.3 mg IM ONCE PRN ##1 10/08/16 03/26/23 injection, auto-injector (EpiPen 2-Carlos) Allergies Allergy/AdvReac Type Severity Reaction Status Date / Time venom-honey bee Allergy Severe BREATHING Unverified 03/26/23 16:49 [bee venom (honey bee)] PROBLEMS Review of Systems All systems reviewed & are unremarkable except as noted in HPI and below PFSH All Active Problems (Updated 03/26/23 @ 17:57 by PAULIE Burger) Sprain of right middle finger (Acute) COVID-19 (Acute) Fracture of metacarpal base of right hand, closed (Acute 06/01/19) Routine child health exam (Acute 08/05/11) Normal weight, pediatric, BMI 5th to 84th percentile for age (Acute 11/03/14) Bee sting allergy (Acute 11/19/16) Closed displaced fracture of middle phalanx of left little finger (Acute 12/10/17) Medical History Bee sting allergy swelling and resp symptoms- has epipen Closed fracture of nasal bones closed reduction 12/07/2009 Constipation Dental caries Right wrist fracture Surgical History Circumcision History of rhinoplasty Repair, Dental Caries Family History Father Asthma Other Personal history of malignant neoplasm Other Personal history of malignant neoplasm Grandfather Cerebrovascular disease Social History Smoking/Tobacco Use Status: Never Smoking risk assessment performed?: Yes Alcohol Intake: current Alcohol Intake frequency: holidays/special occasions only Alcohol type: beer Drug use: Rarely Substance use type: marijuana Current gender identity: male Do you feel safe at home: Yes Do you feel safe in your relationship?: Yes Exam Narrative Exam Narrative: GENERAL APPEARANCE: Well-nourished, non-toxic, awake and alert, atraumatic, no acute distress. SKIN: Warm, pink, dry, intact, without rashes/lesions/ulcerations. HEAD: Normocephalic, atraumatic, normal hair distribution for gender/age. EYES: Pupils PERRLA, EOMs intact without nystagmus, normal conjunctiva, no exudates on lids/lashes. ENT: Nares patent, no circumoral cyanosis, no facial swelling NECK: Supple, trachea midline, painless cervical ROM. LUNGS/CHEST: Non-labored respirations, normal A/P diameter, symmetrical expansion, no chest wall deformity HEART (CV/PV): Regular rate, R radial pulse 2+, no peripheral edema, no JVD. ABDOMEN: Soft, non-distended, no guarding. MSK: Normal ROM, no swelling/deformity to bilateral UEs or LEs, moving all extremities without weakness, no cyanosis, spine midline without tenderness, normal curvature. R Hand: No overt swelling or deformity to the right third finger, he has some weakness against resistance with extension of the finger as well as medial deviation, flexion is within normal limits, there is no crepitus, nailbed is intact and sensation is intact. NEURO: Mental Status AAOx4 - alert to person, place, time, events No facial droop, no forehead involvement. Motor: No focal weakness - strength 5/5 in bilateral UEs and LEs, proximal and distal, symmetric. Sensory: sensation intact to light touch globally. Gait normal: patient ambulated without ataxia into ED room. PSYCH: euthymic, cooperative, pleasant, appropriate speech Course Vital Signs Vital signs: Vital Signs Temperature 36.9 C 03/26/23 16:45 Pulse 72 03/26/23 16:45 Respiratory Rate 16 03/26/23 16:45 Blood Pressure 122/74 03/26/23 16:45 Pulse Oximetry 98 03/26/23 16:45 Temperature 36.9 C 03/26/23 16:45 Temperature Source Oral 03/26/23 16:45 Pulse 72 03/26/23 16:45 Respiratory Rate 16 03/26/23 16:45 Respiratory Effort Normal, Non-Labored 03/26/23 16:50 Blood Pressure 122/74 03/26/23 16:45 Blood Pressure Position Sitting 03/26/23 16:45 Pulse Oximetry 98 03/26/23 16:45 Oxygen Delivery Method Room Air 03/26/23 16:45 Oxygen Flow Rate 0 03/26/23 16:45 Pain Level 6 03/26/23 16:50 Medical Decision Making This dictation utilizes [id number] dictation software and may contain unedited grammatical errors. 23 y/o M presents to ED today with a chief complaint of R 3rd finger pain, sprain type injury while working at [employer] earlier today. Patient is L-hand dominant. Patients' medical history: negative, otherwise healthy. Family and social history: noncontributory. Pertinent exam findings / vital signs include R Hand: No overt swelling or deformity to the right third finger, he has some weakness against resistance with extension of the finger as well as medial deviation, flexion is within normal limits, there is no crepitus, nailbed is intact and sensation is intact.. Differential / pathologies of concern include Tendon rupture vs severe strain/sprain, fracture. Diagnostic studies of: -XR R 3rd Finger- no acute fracture. Interventions of: -splinted, recommend ortho f/u. ED Course/Assessment/Plan: Patient presents with a right third finger injury, has weakness with extension and medial deviation against resistance of this finger without overt deformity or signs of fracture, I did place him in a baseball finger splint and recommend that he perform RICE therapy as well as therapeutic dosing of Tylenol and ibuprofen, if he has any continued weakness with range of motion I recommend he follows up with orthopedics, there was no presence of mallet finger at today's visit. Findings not consistent with complete ROM deficit, strength deficit. Disposition of Sprain of Right Middle Finger. Patient verbalized understanding of the plan and return to ED criteria and engaged in shared decision making. Medical Records Medical records reviewed: Yes I reviewed the patient's medical records. Imaging Data Radiologic Study: Imaging: X-Ray Radiologist's impression: EXAM: XR FINGER RT MIDDLE CLINICAL HISTORY: R middle finger pain, fx vs tendon injury. TECHNIQUE: 2D digital imaging was performed of the right finger. Three views were obtained. PA/AP, oblique, and lateral views were obtained. COMPARISON: No exams were available for comparison FINDINGS: BONES: No acute fracture is present. No bony destructive lesion is seen. JOINTS: No dislocation present. SOFT TISSUE: Normal. IMPRESSION: No evidence of acute fracture, dislocation, or subluxation. Quality:SDOH Health Related Social Needs: No Data to Display Discharge Plan Disposition Patient Disposition: Home Discharge Details Clinical Impression: Sprain of right middle finger Primary Care Provider: Unknown,Unknown ED Provider: Tacos Mejia Home Meds and New Rx's Prescriptions: Continued epinephrine [EpiPen 2-Carlos] 0.3 MG/0.3 ML auto-injector 0.3 mg IM ONCE PRNQty: 1 Rx Instructions: use per allergy plan/gift wrapper, one for home and one for school Discharge Instructions Instructions: Finger Sprain (ED), Tendon Rupture (ED) Additional Instructions: You were seen in the emergency department for the injury to your right third finger, this could be a severe sprain of the finger but also a tendon injury is not ruled out. I am placing you in a finger splint, please remain in this for the next few days unless you achieve total remission of pain and range of motion deficits. Rest, ice, compress and elevate the finger as often as possible, please use therapeutic dosing of Tylenol (acetamenophen) & Advil (ibuprofen) in an alternating fashion as follows: Take 1000mg of Tylenol every 6 hours without missing doses- that is 4 times per day. Senior Living in between the Tylenol dosings, take 400-600mg of Advil also on a 6 hour schedule, that is also 4 times per day. The daily maximum dosing of Tylenol is 4000mg, and the daily maximum dosing of Advil is 2400mg. This is safe to do for weeks. Please note that some common cold medications & prescription pain medications may contain acetamenophen and you need to read OTC drug labels and factor that in to maximum daily dosings. Referrals: [facility] [Provider Group]
== END 2023-03-26 18:11 | disposition home or self-care (01) ==
PROVIDERS: Emergency Provider Physician Assistant
DX: S63.612A Unspecified sprain of right middle finger, initial encounter (principal); W23.1XXA Caught, crushed, jammed, or pinched between stationary objects, initial encounter
CPT/HCPCS: 99283; 73140

== ENCOUNTER 2023-07-14 10:50 | Emergency (ER) | payer OTHER, SELFPAY ==
[2023-07-14 10:56] VITALS: BP 142/92; PULSE 87; RESP 16; TEMP 37.4; O2SAT 98
--- NOTE | 2023-07-14 11:06 | ED.GENADUL_ITS ---
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 Your x-ray shows no acute fracture. You may just have a partial sprain of one of the tendons of the rotator cuff but the only way to diagnose this if fully ruptured would be an MRI. I am providing you with a shoulder immobilizer, this will help you when getting around to keep the shoulder still but you need to remove it very frequently and perform gentle pendulum exercises to keep your shoulder from getting a condition called frozen shoulder. Please use therapeutic dosing of Tylenol (acetamenophen) & Advil (ibuprofen) in an alternating fashion as follows: Take 1000mg of Tylenol every 6 hours without missing doses- that is 4 times per day. [place] in between the Tylenol dosings, take 400-600mg of Advil also on a 6 hour schedule, that is also 4 times per day. The daily maximum dosing of Tylenol is 4000mg, and the daily maximum dosing of Advil is 2400mg. This is safe to do for weeks. Please note that some common cold medications & prescription pain medications may contain acetamenophen and you need to read OTC drug labels and factor that in to maximum daily dosings. Rest, ice, compress the shoulder frequently throughout the day, please return to the ED for any sign of complete neurovascular compromise like inability to move your arm at all, excruciating pain out of proportion that is worsening despite analgesic effects, unilateral arm swelling. I am placing you on the list to follow-up with orthopedics. Stand Alone Forms: Work Release Referrals: [facility] [Provider Group] HPI General Date/Time Provider Initiated Documentation: 07/14/23 11:05 . HPI Narrative: 23 year-old male presents to ED today by POV/ambulating with a chief complaint of R shoulder pain, L-hand dominant with onset just prior to arrival. 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 Severity is described as 8/10. Palliating factors include nothing attempted. Provoking factors include any movement. Patient not anticoagulated. Related Data Home Medications Medication Instructions Recorded Confirmed epinephrine 0.3 mg/0.3 mL 0.3 mg IM ONCE PRN ##1 10/08/16 07/14/23 injection, auto-injector (EpiPen 2-Carlos) Allergies Allergy/AdvReac Type Severity Reaction Status Date / Time venom-honey bee Allergy Severe BREATHING Unverified 07/14/23 11:00 [bee venom (honey bee)] PROBLEMS General Stated Complaint: Orthopedic LEOBARDO: 4 Review of Systems All systems reviewed & are unremarkable except as noted in HPI and below Exam Narrative Exam Narrative: GENERAL APPEARANCE: Well-nourished, non-toxic, awake and alert, atraumatic, no acute distress. SKIN: Warm, pink, dry, intact, without rashes/lesions/ulcerations. HEAD: Normocephalic, atraumatic, normal hair distribution for gender/age. EYES: Normal conjunctiva, no exudates on lids/lashes. ENT: Nares patent, no circumoral cyanosis, no facial swelling NECK: Supple, trachea midline, painless cervical ROM. LUNGS/CHEST: Non-labored respirations, normal A/P diameter, symmetrical expansion, no chest wall deformity HEART (CV/PV): Regular rate, R radial pulse 2+, no peripheral edema, no JVD. ABDOMEN: Soft, non-distended, no guarding. MSK: Normal ROM, no swelling/deformity to bilateral UEs or LEs, moving all extremities without weakness, no cyanosis, spine midline without tenderness, normal curvature. R UE: No crepitus to the shoulder, tenderness diffusely to the shoulder joint, humerus stable, able to supinate pronate, right radial pulse 2+, sensation intact in the hand with tugboat dispatcher strength 5/5, no raised appearance of the distal clavicle, no midline vertebral tenderness, pain with any movement including passive range of motion without warmth to touch, patient intolerant of special tests of rotator cuff NEURO: Mental Status AAOx4 - alert to person, place, time, events No facial droop, no forehead involvement. Motor: No focal weakness - strength 5/5 in bilateral UEs and LEs, proximal and distal, symmetric. Sensory: sensation intact to light touch globally. Gait normal: patient ambulated without ataxia into ED room. PSYCH: euthymic, cooperative, pleasant, appropriate speech Course Vital Signs Vital signs: Vital Signs Temperature 37.4 C 07/14/23 10:56 Pulse 87 07/14/23 10:56 Respiratory Rate 16 07/14/23 10:56 Blood Pressure 142/92 H 07/14/23 10:56 Pulse Oximetry 98 07/14/23 10:56 Temperature 37.4 C 07/14/23 10:56 Temperature Source Temporal Artery Scan 07/14/23 10:56 Pulse 87 07/14/23 10:56 Respiratory Rate 16 07/14/23 10:56 Respiratory Effort Normal, Non-Labored 07/14/23 11:01 Blood Pressure 142/92 H 07/14/23 10:56 Pulse Oximetry 98 07/14/23 10:56 Oxygen Delivery Method Room Air 07/14/23 10:56 Oxygen Flow Rate 0 07/14/23 10:56 Medical Decision Making This dictation utilizes [id number] dictation software and may contain unedited grammatical errors. 23 y/o M presents to ED today with a chief complaint of R shoulder pain, was working on cars- muffler fell on his arm, having R shoulder pain with a pop felt at the time - denies headstrike, no neck pain. Patient is L-hand dominant. Patients' medical history: noncontributory. Family and social history: noncontributory. Pertinent exam findings / vital signs include R UE: No crepitus to the shoulder, tenderness diffusely to the shoulder joint, humerus stable, able to supinate pronate, right radial pulse 2+, sensation intact in the hand with tugboat dispatcher strength 5/5, no raised appearance of the distal clavicle, no midline vertebral tenderness, pain with any movement including passive range of motion without warmth to touch, patient intolerant of special tests of rotator cuff. Differential / pathologies of concern include Rotator Cuff Arthropathy, AC Separation, Fracture, NOT dislocation, NOT NV compromise. Diagnostic studies of: -XR R Shoulder - no acute fracture seen. Interventions of: -sling PRN, counseled on pendulum exercises. 60mg IM Toradol ED Course/Assessment/Plan: 43-year-old male presents with right shoulder. A muffler fell on his arm, he felt a pop in the shoulder joint, he is intolerant of special tests of the shoulder at this time I do suspect rotator cuff arthropathy, counseled him on sling use as needed and icing and using adequate dosing Tylenol and ibuprofen, frequent removal of sling to perform pendulum exercises. Provided light duty work note, counseled on strict return criteria for any signs of neurovascular compromise of the right arm. Findings not consistent with fracture, dislocation, neurovascular compromise. Disposition of sprain of right shoulder. Patient verbalized understanding of the plan and return to ED criteria and engaged in shared decision making. Medical Records Medical records reviewed: Yes I reviewed the patient's medical records. Imaging Data Radiologic Study: Attestation: I personally reviewed and interpreted this imaging study as follows: Imaging: X-Ray Radiologist's impression: EXAM: XR SHOULDER RT COMPLETE 2+V CLINICAL HISTORY: R shoulder pain, felt a pop. TECHNIQUE: 2D digital imaging was performed of the right shoulder. Five images were obtained. AP, Grashey, Y-view and axillary views were obtained. COMPARISON: No exams were available for comparison FINDINGS: BONES: No acute fracture is present. No bony destructive lesion is seen. JOINTS: No dislocation present. The joint spaces are well maintained. SOFT TISSUE: Normal. IMPRESSION: Unremarkable radiographs of the right shoulder. Quality:SDOH Health Related Social Needs: No Data to Display PFSH All Active Problems (Updated 07/14/23 @ 12:19 by PAULIE Burger) Sprain of right shoulder (Acute) COVID-19 (Acute) Fracture of metacarpal base of right hand, closed (Acute 06/01/19) Routine child health exam (Acute 08/05/11) Normal weight, pediatric, BMI 5th to 84th percentile for age (Acute 11/03/14) Bee sting allergy (Acute 11/19/16) Closed displaced fracture of middle phalanx of left little finger (Acute 12/10/17) Medical History Bee sting allergy swelling and resp symptoms- has epipen Closed fracture of nasal bones closed reduction 12/07/2009 Constipation Dental caries Right wrist fracture Surgical History Circumcision History of rhinoplasty Repair, Dental Caries Family History Father Asthma Other Personal history of malignant neoplasm Other Personal history of malignant neoplasm Grandfather Cerebrovascular disease Social History Smoking/Tobacco Use Status: Never Smoking risk assessment performed?: Yes Alcohol Intake: current Alcohol Intake frequency: holidays/special occasions only Alcohol type: beer Drug use: Rarely Substance use type: marijuana Current gender identity: male Do you feel safe at home: Yes Do you feel safe in your relationship?: Yes PAWSS Have you Been Recently Intoxicated or Drunk Within the Last 30 days?: Yes Have you Ever Experienced Previous Episodes of Alcohol Withdrawal?: No Have you ever Experienced Withdrawal Seizures?: No Have you ever Experienced Delirium Tremens(DT)s?: No Have you ever undergone Alcohol Rehabilitation Treatment (i.e, inpt ot ou tpatient treatment programs)?: No Have you ever Experienced Blackouts?: No Have you ever Combined Alcohol with other Downers within the last 90 days?: No Have you ever Combined Alcohol with any other Substance of Abuse during the last 90 days?: No Result: 1
[2023-07-14] MEDS: Ketorolac 60 MG/2 ML VIAL IM (11:40)
--- NOTE | 2023-07-14 11:55 | DI.RAD_ITS ---
Exam(s) XR SHOULDER RT COMPLETE 2+V EXAM: XR SHOULDER RT COMPLETE 2+V CLINICAL HISTORY: R shoulder pain, felt a pop. TECHNIQUE: 2D digital imaging was performed of the right shoulder. Five images were obtained. AP, Grashey, Y-view and axillary views were obtained. COMPARISON: No exams were available for comparison FINDINGS: BONES: No acute fracture is present. No bony destructive lesion is seen. JOINTS: No dislocation present. The joint spaces are well maintained. SOFT TISSUE: Normal. IMPRESSION: Unremarkable radiographs of the right shoulder. DATA REPOSITORY: RADIATION DOSE DELIVERED:
[2023-07-14 12:31] VITALS: RESP 16; TEMP 37.4; O2SAT 98
== END 2023-07-14 12:36 | disposition home or self-care (01) ==
LOC: ER 12:34
PROVIDERS: Emergency Provider Physician Assistant
DX: S43.401A Unspecified sprain of right shoulder joint, initial encounter (principal); X50.9XXA Other and unspecified overexertion or strenuous movements or postures, initial encounter; Y93.89 Activity, other specified; Y92.89 Other specified places as the place of occurrence of the external cause
CPT/HCPCS: 96372; 99283; 73030; J1885

== ENCOUNTER 2023-08-21 21:44 | Emergency (ER) | payer BC, SELFPAY ==
[2023-08-21] VITALS (14 sets, daily range): BP systolic 139–160; BP diastolic 95–120; PULSE 88–125; RESP 12–23; TEMP 36.3; O2SAT 97–99
--- NOTE | 2023-08-21 21:30 | RT.EKG_ITS ---
APPROVED REPORT Exam: Resting ECG Reason for Exam: chest pain Patient Location: E HR:115 bpm ECG Measurements Heart Rate 115 AXIS MT 151 P 72 QRSd 90 QRS 90 QT 330 T 53 QTc 458 Conclusion Sinus tachycardia...rate> 99 sinus tachycardia, normal axis, normal intervals, non ischemic
[2023-08-21 22:07] LABS: Abs Immature Grans 0.03 10^3/uL (0.0-0.06); Absolute Basophil Count 0.05 10^3/uL (0.0-0.2); Absolute Eosinophil Count 0.12 10^3/uL (0.0-0.7); Absolute Lymphocyte Count 2.87 10^3/uL (1.2-3.4); Absolute Monocyte Count 0.54 10^3/uL (0.1-0.8); Basophils % 0.7 %; Eosinophils % 1.6 %; HCT 43.5 % (40.0-50.0); HGB 15.9 g/dL (13.5-17.5); Immature Grans % 0.4 %; Lymphocytes % 37.7 %; MCH 30.3 pg (27.0-33.0); MCHC 36.6 % (32.0-36.0); MCV 83 fL (80-95); MPV 11.3 fL (8.0-11.0); Monocytes % 7.1 %; Neutrophils % 52.5 %; Platelet Count 200 10^3/uL (130-400); RBC 5.25 10^6/uL (4.36-5.78); RDW 11.5 % (11.8-14.1); RDW-SD 34.8 fL; WBC 7.61 10^3/uL (4.4-10.8)
--- NOTE | 2023-08-21 22:14 | ED.GENADUL_ITS ---
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 Return to the emergency department for any worsening symptoms otherwise follow-up close with your primary care physician Stand Alone Forms: Work Release HPI General Date/Time Provider Initiated Documentation: 08/21/23 21:50 . HPI Narrative: 23-year-old male presents brought by EMS for evaluation of rapid heart rate, patient was getting out of the shower felt a rapid heart rate and rapid breathing also had paresthesias to bilateral upper extremities feel as if he was going to pass out. Patient denies history of cardiac disease or thromboembolic disease. No risk factors. History of prior panic attacks in the past at a younger age. Denies any acute psychosocial stressors at home. Denies drug or alcohol use currently Related Data Home Medications Medication Instructions Recorded Confirmed epinephrine 0.3 mg/0.3 mL 0.3 mg IM ONCE PRN ##1 10/08/16 07/22/23 injection, auto-injector (EpiPen 2-Carlos) Allergies Allergy/AdvReac Type Severity Reaction Status Date / Time venom-honey bee Allergy Severe BREATHING Unverified 07/22/23 13:55 [bee venom (honey bee)] PROBLEMS General Stated Complaint: GenMedical LEOBARDO: 3 Review of Systems Narrative: Review of Systems Constitutional: negative Eyes: negative ENT: negative Cardiovascular: Rapid heart rate Respiratory: negative Gastrointestinal: negative : negative Musculoskeletal: negative Skin: negative Neurologic: negative Psych: Anxiety Exam Narrative Exam Narrative: Physical Examination General: alert, awake, cooperative, appears extremely anxious HEENT: normocephalic, atraumatic; PERRL, EOM intact, conjunctiva normal; no nasal discharge; moist mucous membranes, oral and pharyngeal mucosa normal, tolerating secretions Neck: supple, trachea midline; full ROM Chest: normal to inspection Respiratory: normal respiratory effort, speaking in full sentences, clear to auscultation, no wheezing, rales or rhonchi Cardiac: Tachycardia, regular rhythm, S1S2 intact, no murmurs rubs or gallops GI: abdomen soft, non-tender, non-distended; no palpable mass or hepatosplenomegaly Skin: no lesions, rashes or trauma appreciated Neuro: AAOx3, normal speech, moving all extremities Extremities: No peripheral edema Psych: Anxiety, hyperventilating Course Vital Signs Vital signs: Vital Signs Temperature 36.3 C L 08/21/23 21:44 Pulse 107 H 08/21/23 21:44 Respiratory Rate 18 08/21/23 21:44 Blood Pressure 154/120 H 08/21/23 21:44 Pulse Oximetry 98 08/21/23 21:44 Temperature 36.3 C L 08/21/23 21:44 Temperature Source Temporal Artery Scan 08/21/23 21:44 Pulse 107 H 08/21/23 21:44 Respiratory Rate 18 08/21/23 21:49 Respiratory Effort Normal, Non-Labored 08/21/23 21:49 Respiratory Depth Normal 08/21/23 21:49 Respiratory Pattern Normal 08/21/23 21:49 Blood Pressure 154/120 H 08/21/23 21:44 Pulse Oximetry 98 08/21/23 21:44 Oxygen Delivery Method Room Air 08/21/23 21:44 Oxygen Flow Rate 0 08/21/23 21:44 Pain Level 7 08/21/23 21:44 Lab/Test Results Lab/Test Results: Laboratory Tests Range/Units 08/21/23 21:51 WBC (4.4-10.8) 10^3/uL 7.61 RBC (4.36-5.78) 10^6/uL 5.25 Hgb (13.5-17.5) g/dL 15.9 Hct (40.0-50.0) % 43.5 MCV (80-95) fL 83 MCH (27.0-33.0) pg 30.3 MCHC (32.0-36.0) % 36.6 H RDW (11.8-14.1) % 11.5 L Plt Count (130-400) 10^3/uL 200 MPV (8.0-11.0) fL 11.3 H Immature Gran % % 0.4 Neutrophils % % 52.5 Lymphocytes % % 37.7 Monocytes % % 7.1 Eosinophils % % 1.6 Basophils % % 0.7 Nucleated RBC % (0.0-0.3) % 0.0 Absolute Neutrophils (1.2-6.7) 10^3/uL 4.00 Absolute Lymphocytes (1.2-3.4) 10^3/uL 2.87 Absolute Monocytes (0.1-0.8) 10^3/uL 0.54 Absolute Eosinophils (0.0-0.7) 10^3/uL 0.12 Absolute Basophils (0.0-0.2) 10^3/uL 0.05 Medical Decision Making 23-year-old male presents brought by EMS for evaluation of rapid heart rate, patient was getting out of the shower felt a rapid heart rate and rapid breathing also had paresthesias to bilateral upper extremities feel as if he was going to pass out. Patient denies history of cardiac disease or thromboembolic disease. No risk factors. History of prior panic attacks in the past at a younger age. Denies any acute psychosocial stressors at home. Denies drug or alcohol use currently. Patient noted to be tachycardic and hypertensive on arrival afebrile nontoxic, patient is hyperventilating, lungs clear bilaterally speaking full sentences tolerating secretions, no external signs of trauma no signs of infection, lower suspicion for intoxication, high clinical suspicion for panic attack lower suspicion for malignant arrhythmia, EKG sinus tachycardia normal axis normal intervals nonischemic. Will obtain basic metabolic panel, CBC, magnesium level, TSH urinalysis/U tox, screening chest x-ray, trial of benzodiazepine and fluids close reassessment. 23: 06 resting comfortably no acute distress heart rate 93 bpm blood pressure is improved, patient much more calm, upon further history patient endorses drinking 3 large monster energy drinks throughout the day today into this evening. High clinical suspicion for anxiety reaction in the setting of over caffeination. Patient family here to bring him home Quality:SDOH Health Related Social Needs: No Data to Display PFSH All Active Problems (Updated 08/21/23 @ 23:08 by Bruce Dawson MD) Caffeine adverse reaction (Acute) Instability of right shoulder joint (Acute) Tear of right glenoid labrum (Acute 07/14/23) COVID-19 (Acute) Fracture of metacarpal base of right hand, closed (Acute 06/01/19) Routine child health exam (Acute 05/14/12) Normal weight, pediatric, BMI 5th to 84th percentile for age (Acute 11/03/14) Bee sting allergy (Acute 11/19/16) Closed displaced fracture of middle phalanx of left little finger (Acute 12/10/17) Medical History Bee sting allergy swelling and resp symptoms- has epipen Closed fracture of nasal bones closed reduction 12/07/2009 Constipation Dental caries Right wrist fracture Surgical History Circumcision History of rhinoplasty Repair, Dental Caries Family History Father Asthma Other Personal history of malignant neoplasm Other Personal history of malignant neoplasm Grandfather Cerebrovascular disease Social History Smoking/Tobacco Use Status: Never Smoking risk assessment performed?: Yes Alcohol Intake: current Alcohol Intake frequency: 0-2 drinks per day Alcohol type: beer Drug use: Rarely Substance use type: marijuana Current gender identity: male Do you feel safe at home: Yes Do you feel safe in your relationship?: Yes PAWSS Have you Been Recently Intoxicated or Drunk Within the Last 30 days?: No Have you Ever Experienced Previous Episodes of Alcohol Withdrawal?: No Have you ever Experienced Withdrawal Seizures?: No Have you ever Experienced Delirium Tremens(DT)s?: No Have you ever undergone Alcohol Rehabilitation Treatment (i.e, inpt ot outpatient treatment programs)?: No Have you ever Experienced Blackouts?: No Have you ever Combined Alcohol with other Downers within the last 90 days?: No Have you ever Combined Alcohol with any other Substance of Abuse during the last 90 days?: No Positive Blood Alcohol level on Presentation? [PCS.BAL]: No Evidence of Increased Autonomic Activity (i.e. HR>120, tremor, sweating, agitation, nausea)?: No Result: 0
[2023-08-21 22:18] LABS: Magnesium 1.8 mg/dL (1.8-2.4)
[2023-08-21 22:22] LABS: ALT 51 U/L (16-63); AST 25 U/L (15-37); Albumin 4.4 g/dL (3.4-5.0); Alkaline Phosphatase 85 U/L (46-116); Anion Gap 13.4 mmol/L (3-11); BUN 10 mg/dL (7-18); Bilirubin, Total 1.5 mg/dL (0.2-1.0); CO2 23.6 mmol/L (21.0-32.0); CREATININE 1.2 mg/dL (0.70-1.30); Calcium 8.7 mg/dL (8.5-10.1); Chloride 103 mmol/L (98-107); Estimated GFR 87.15 (mL/min/1.73m2); Glucose 152 mg/dL (74-106); Potassium 3.4 mmol/L (3.5-5.1); Sodium 140 mmol/L (136-145); Total Protein 7.6 g/dL (6.4-8.2)
[2023-08-21] MEDS: clonazePAM 0.5 MG TAB 0.25 MG PO (22:22)
[2023-08-21] MEDS: Normal Saline 1,000 ML 1000 ML IV (22:22)
--- NOTE | 2023-08-21 22:29 | DI.RAD_ITS ---
Exam(s) XR PORTABLE CHEST AP EXAM: XR PORTABLE CHEST AP CLINICAL HISTORY: tachycardia, chest pressure TECHNIQUE: 2D digital imaging was performed of the chest. Two images were obtained. AP views were obtained. COMPARISON: CR,XR XR PORTABLE CHEST AP from 01/17/2021 FINDINGS: MEDIASTINUM: Normal. HEART: Normal. PULMONARY VASCULATURE: Normal. LUNGS: Clear. PLEURAL SPACE: No pleural effusion or pneumothorax. BONE:Within normal limits for the patient's age. OTHER FINDINGS:Normal. IMPRESSION: No acute pulmonary findings. DATA REPOSITORY: RADIATION DOSE DELIVERED:
[2023-08-21 22:32] LABS: TSH (W/Ref FT4) 3.06 uIU/mL (0.36-3.74)
[2023-08-21 23:01] LABS: Bilirubin Negative (Negative); Blood Negative (Negative); Clarity Clear (Clear); Glucose Negative (Negative); Ketones Negative (Negative); Leukocyte Esterase Negative (Negative); Nitrite Negative (Negative); Specific Gravity 1.015 (1.005-1.025); Urobilinogen 0.2 mg/dL (Up to 0.2); pH 7.5 (5-8)
--- NOTE | 2023-08-21 23:12 | DI.VRAD_ITS ---
PROCEDURE INFORMATION: Exam: XR Chest Exam date and time: 08/21/2023 10:21 PM Age: 23 years old Clinical indication: Pain; Tachypnea; Patient HX: Tachycardia, chest pressure TECHNIQUE: Imaging protocol: Radiologic exam of the chest. Views: 1 view. COMPARISON: CT CHEST/ABD/PEL W 06/03/2022 3:18 PM FINDINGS: Lungs: Unremarkable. No consolidation. Pleural spaces: Unremarkable. No pleural effusion. No pneumothorax. Heart/Mediastinum: Unremarkable. No cardiomegaly. Bones/joints: Unremarkable. IMPRESSION: No acute findings. Dictated and Authenticated by: Juan Miguel Alegria MD. Ordering:CLAUDINE Barrera MD
[2023-08-21 23:20] LABS: *AMPHETAMINES SCREEN URINE Negative (Negative); *BARBITURATES SCREEN URINE Negative (Negative); *BENZODIAZEPINES SCREEN URINE Negative (Negative); Cannabinoids THC Negative (Negative); Cocaine Screen,Urine Negative (Negative); METHADONE URINE SCREEN Negative (Negative); OPIATES URINE SCREEN Negative (Negative); Tricyclic Antidepressants Negative (Negative)
== END 2023-08-21 23:17 | disposition home or self-care (01) ==
PROVIDERS: Emergency Provider Emergency Medicine
DX: R07.9 Chest pain, unspecified (principal); R00.0 Tachycardia, unspecified; R06.4 Hyperventilation; T43.615A Adverse effect of caffeine, initial encounter; Y92.018 Other place in single-family (private) house as the place of occurrence of the external cause
CPT/HCPCS: 80053; 80307; 93005; 99284; 71045; 81003; 83735; 84443; 85025; 93010; 99283

== ENCOUNTER → 2023-09-24 01:28 | Outpatient (CLI) | payer OTHER, SELFPAY ==
--- NOTE | 2023-09-24 08:22 | DI.MRI_ITS ---
Exam(s) MR UPPER JOINT RT WO EXAM: MR UPPER JOINT RT WO CLINICAL HISTORY: INSTABILITY, ? LABRAL TEAR, sprain rt shoulder, S43.401A TECHNIQUE: Multiplanar multisequence MRI of the shoulder was performed. COMPARISON: CR XR SHOULDER RT COMPLETE 2+V from 07/14/2023 FINDINGS: MARROW:There is no evidence of fracture, Hill-Sachs deformity, nor ominous osseous lesions. GLENOHUMERAL JOINT: No joint effusion nor obvious loose intra-articular bodies. No chondral defects. No osteophytes. No degenerative subarticular cysts. No evidence of capsular tear. The inferior gle nohumeral ligament is intact. ROTATOR CUFF MECHANISM: AC JOINT/ACROMIUM: There are no significant degenerative changes in the AC joint.. There is no evidence of os acromiale. Supraspinatus: Intact. No evidence of tear nor muscle atrophy. Infraspinatus: Intact. No evidence of tear nor muscle atrophy. Teres Minor: Intact. No evidence of tear nor muscle atrophy. Subscapularis/anterior cuff: Intact. No abnormal signal at the level of the multipennate insertional fibers. No significant tear nor atrophy. BICEPS TENDON: Exhibits normal position within the intertubercular groove. No evidence of tear. No tenosynovitis. LABRUM: There is a tear in the posterior labrum (best seen axial image 11) and there is an associated septated paralabral cyst coming off the posterior aspect of the labrum at this level, this measuring 1 point 5 cm length by 0.3 cm wide. There is no tear of the superior labrum. No obvious tear of th e anterior labrum and inferior labrum as well as inferior glenohumeral ligament appear intact. There is no abnormal intraosseous signal abnormality in the osseous glenoid. No periosteal stripping evid ent QUADRILATERAL SPACE: No evidence of mass in the region of the axillary nerve and dorsal circumflex hu meral vessels. Visualized triceps muscle at this level appears unremarkable. IMPRESSION: 1. There is tear in the posterior labrum as described above. There is an associated multi septated p aralabral cyst which is 3 mm thick and which extends posteriorly from the labral tear. The remainder of the glenoid labrum appears intact and there is no abnormal intraosseous signal in the osseous gle noid. 2. No evidence of significant tear of the rotator cuff musculature and no evidence of atrophy of the rotator cuff musculature. 3. No evidence of glenohumeral joint effusion nor loose intra-articular bodies nor degenerative jimenez es in the glenohumeral and AC joints. DATA REPOSITORY:
== END ==
PROVIDERS: Visit Provider Student in an Organized Health Care Education/Training Program
DX: S43.401A Unspecified sprain of right shoulder joint, initial encounter (principal)
CPT/HCPCS: 73221

== ENCOUNTER 2023-10-14 15:36 | Emergency (ER) | payer BC, SELFPAY ==
--- NOTE | 2023-10-14 15:39 | RT.EKG_ITS ---
APPROVED REPORT Exam: Resting ECG Reason for Exam: Chest Pain Patient Location: E HR:82 bpm ECG Measurements Heart Rate 82 AXIS IN 124 P 59 QRSd 86 QRS 68 QT 355 T 64 QTc 406 Conclusion Sinus rhythm...normal P axis, V-rate 60- 99 Atrial premature complex...SV complex w/ short R-R interval
[2023-10-14 15:41] VITALS: BP 149/91; PULSE 75; RESP 16; TEMP 36.8; O2SAT 98
[2023-10-14 15:44] VITALS: RESP 16
--- NOTE | 2023-10-14 17:48 | NUR.NOTE ---
Nursing Note: Went to waiting room to retrieve pt for a room, pt was no longer in the waiting room our surrounding area. LWBS.
== END 2023-10-14 17:49 ==
DX: Z53.21 Procedure and treatment not carried out due to patient leaving prior to being seen by health care provider (principal)
CPT/HCPCS: 93005; 93010

== ENCOUNTER 2023-11-06 05:51 | Day surgery (SDC) | payer OTHER, BC, SELFPAY ==
[2023-11-06] VITALS (50 sets, daily range): BP systolic 109–151; BP diastolic 57–94; PULSE 60–134; RESP 5–23; TEMP 36–36.8; O2SAT 87–100; BMI 23.8
--- NOTE | 2023-11-06 06:33 | ANES.PREOP_ITS ---
General Info Date of Service Date Performed: 11/06/23 Height: 5 ft 7 in Weight: 69.2 kg Body Mass Index (BMI): 23.8 Surgical Procedure: Operation Date: 11/06/23 07:55 Proposed Procedure Side Surgeon p Shoulder Arthroscopy w/Labral Repair/Stabilization, Any Indicated Debridement Right Waqar Kelly MD Meds Allergies and Home Medications Allergies Allergy/AdvReac Type Severity Reaction Status Date / Time venom-honey bee (bee venom Allergy Severe BREATHING Verified 11/06/23 06:12 (honey bee)) PROBLEMS Home Medication ?Medication ?Instructions ?Recorded epinephrine 0.3 mg/0.3 mL 0.3 mg IM ONCE PRN ##1 10/08/16 injection, auto-injector (EpiPen 2-Carlos) ibuprofen 200 mg tablet (Advil) 200 mg PO Q8H PRN 11/04/23 Current Visit Medications: Current Medications Generic Name Dose Route Start Last Admin Trade Name Freq PRN Reason Stop Dose Admin Ringer's Solution 1,000 mls @ 30 mls/hr 11/06/23 06:00 IV 12/06/23 05:59 INFUSION CHELI Cefazolin Sodium/Dextrose 2 gm in 50 mls @ 100 mls/hr 11/06/23 06:00 Ancef Duplex IVPB 11/06/23 16:00 PREOP CHELI Tranexamic Acid/Sodium Chloride 1,000 mg in 100 mls @ 600 mls/hr 11/06/23 0 6:00 IVPB 11/06/23 16:00 PREOP CHELI IV Miscellaneous Supplies 1 each 11/06/23 06:00 Iv Access IV 12/05/23 23:59 DIRECTED CHELI Sodium Chloride 0 ml 11/06/23 06:00 Normal Saline Flush 10 Ml Syr IV 12/05/23 23:59 PRN PRN Sodium Chloride 0 ml 11/06/23 06:00 Normal Saline 10 Ml Vial IJ 12/05/23 23:59 DIRECTED PRN Sterile Water 0 ml 11/06/23 06:00 Water,Injection,Sterile 10 Ml Vial IJ 12/05/23 23:59 DIRECTED PRN PFSH Active Problems Active Problems: Problem Status Onset Code Right shoulder pain Acute M25.511 Instability of right shoulder joint Acute M25.311 Tear of right glenoid labrum Acute 07/14/23 S43.431A COVID-19 Acute U07.1 Fracture of metacarpal base of right hand, closed Acute 06/01/19 S62.319A Routine child health exam Acute 08/05/11 Z00.129 Normal weight, pediatric, BMI 5th to 84th percentile for age Acute 11/03/14 Z68.52 Bee sting allergy Acute 11/19/16 Z91.030 Closed displaced fracture of middle phalanx of left little finger Acute 12/10/17 S62.627A Medical History Medical History Constipation Bee sting allergy swelling and resp symptoms- has epipen Dental caries Closed fracture of nasal bones closed reduction 12/07/2009 Right wrist fracture Surgical History Surgical History History of arthroscopy of both knees History of rhinoplasty Repair, Dental Caries Circumcision Tobacco Smoking/Tobacco Use Status: Never Alcohol Alcohol Intake: current Alcohol intake frequency: a few times a week Alcohol type: beer Substance Use Substance use: Rarely Substance use type: marijuana Details: alcohol: t-3, few sips. Marijuana: months Vital Signs and Lab Results Vital Signs Most Recent Vital Signs in EMR: Most Recent Vital Signs Temp Pulse Resp BP Pulse Ox 36.2 C L 76 16 142/87 H 99 11/06/23 06:18 11/06/23 06:18 11/06/23 06:18 11/06/23 06:18 11/06/23 06:18 Lab Results Blood Type / Crossmatch: No Data to Display Complete Blood Count: No Data to Display Complete Metabolic Panel: No Data to Display Liver Function Panel: No Data to Display Coagulation Panel: No Data to Display Cardiac Panel: No Data to Display Arterial Blood Gas: No Data to Display Venous Blood Gas: No Data to Display Pancreas Panel: No Data to Display Thyroid Panel: No Data to Display Infectious Disease: No Data to Display Blood Cultures: No Data to Display Toxicology Panel: No Data to Display Imaging and Studies Imaging and Studies Study information below may be from another EMR and interpreted by another provider. Please see original notes in EMR for more complete details. EKG Summary: 10/14/23: Exam: Resting ECG Reason for Exam: Chest Pain Patient Location: E HR:82 bpm ECG Measurements Heart Rate 82 AXIS MA 124 P 59 QRSd 86 QRS 68 QT 355 T64 QTc 406 Conclusion Sinus rhythm...normal P axis, V-rate 60- 99 Atrial premature complex...SV complex w/ short R-R interval Anesthesia Assessment and Plan Anesthesia History Personal History: No History of Anesthesia Complications Family History: No Family History of Anesthesia Complications Exercise Tolerance Exercise Tolerance: Metabolic Equivalents>4 Pertinent Negatives Pertinent Negatives: No Symptoms of GERD, No Major Cardiovascular Symptoms or Complaints and No Major Pulmonary Symptoms or Complaints Cardiac & Pulmonary Exam Cardiac Exam: Normal S1/S2 Heart Sounds Pulmonary Exam: Clear Bilateral Breath Sounds Implantable Cardiac Device Does patient have a Pacemaker or an ICD?: No Airway Exam Known Difficult Airway: No Mallampati Class: 1 Mouth Opening: Normal (> 3cm) Thyromental Distance: Greater than 3 cm Neck Range of Motion: Full ROM Neck Circumference: Normal Teeth Condition: Normal Dentition ASA Classification ASA Score: ASA 2 Emergency Case?: No NPO Status NPO Status: NPO Clears >2 hours, Solids >8 hours Anesthesia Plan Resuscitation Status: Full Code Anesthesia Technique: General Anesthesia Airway Planned: Endotracheal Tube Pain Management: Surgeon and patient request nerve block (Patient requests rescue block) Monitors Used: Standard Monitors
[2023-11-06] MEDS: Lactated Ringers 1,000 ML 30 ML IV (06:50)
--- NOTE | 2023-11-06 07:12 | W.PM.DSUDISC ---
Date of service: 11/06/23 Time of Service: 12:00 Discharge Plan Disposition Patient Disposition: Home Condition: Stable Discharge Details Attending Provider: Waqar Kelly Primary Care Provider: Unknown,Unknown Home Meds and New Rx's Prescriptions: New naproxen 250 mg tablet 250 - 500 mg PO BID PRN (Reason: Moderate pain) Qty: 40 0RF oxycodone 5 mg tablet 5 - 10 mg PO Q4H PRN (Reason: Moderate to severe pain) Qty: 18 0RF Continued epinephrine [EpiPen 2-Carlos] 0.3 MG/0.3 ML auto-injector 0.3 mg IM ONCE PRNQty: 1 Rx Instructions: use per allergy plan/promotions representative, one for home and one for school ibuprofen [Advil] 200 mg tablet 200 mg PO Q8H PRN Discharge Instructions Additional Instructions: Surgery: Right shoulder arthroscopy with posterior labral repair/stabilization Activity: For 6 weeks, you should keep your arm at your side in a neutral position at all times except for physical therapy. Do not try to lift or raise your arm using your own muscles. You should use the sling whenever you are out of the house. At home it is best to remove the sling and rest the arm on a pillow at your side or support the operative side with your other hand. You may allow the arm to dangle at your side. A physical therapy prescription will be sent electronically to begin in about 3 weeks. Postoperative protocol/ ROM restrictions: Weeks 0?3: 0 degrees external rotation Weeks 3?6: Maximum 30 degrees external rotation and 90 degrees forward elevation Weeks 6?8: Maximum 45 degrees external rotation and 120 degrees forward elevation Weeks 8+: Advance to full range of motion Weeks 10-12+: Start light rotator cuff strengthening and dynamic scapular stabilization Return to work guidelines: No use of Right shoulder for 3 months postop: No weight bearing, carrying, lifting, or reaching. May return to work and use hand for gentle manual tasks like writing/typing when comfortable (typically 1-2 weeks). Sling for protection at work unless seated for 6 weeks. Anticipate light duty at 3 months, moderate at 4 months, and heavy at 6 months. Prescriptions: Naproxen 250 mg take 1-2 every 12 hours with a meal as needed for moderate pain Oxycodone 5 mg take 1-2 every 4-6 hours as needed for severe pain You may use [id number] Tylenol (acetaminophen) as needed for mild pain. These pain medications may be taken all at once or in different combinations as needed. Also, recommend Colace (docusate) as a stool softener as surgery and pain medicine cause constipation. You may try [id number] diphenhydramine (Benadryl) 25-50 mg nightly as a sleep aid Dressings: Remove shoulder bandage after 3 days. Leave the sticky Steri-Strips in place until they fall off or remove them after you shower. Cover the incisions with Band-Aids or leave them open to air. You may shower after 5 days. Follow-up: 10-[address] Kelly You may take off the leg compression stockings this evening at home. You may also leave them on a few days longer if you have a history of leg swelling or edema. Let us know right away if you develop any redness, drainage, fevers, chest pain, or trouble breathing. Do not drink alcohol or drive for at least 24 hours after anesthesia. Please call the office during business hours with any questions or concerns. Discharge Orders Discharge Orders: Discharge Order (Routine); Ordered 11/06/23 Ordered By: Corbin Fontanez DS: Diagnosis Discharge Diagnosis (1) Tear of right glenoid labrum: Status: Acute (2) Instability of right shoulder joint: Status: Acute
--- NOTE | 2023-11-06 07:16 | W.PM.OP ---
Date of service: 11/06/23 Time of Service: 09:33 Operative Note Operative Note DATE OF PROCEDURE: 11/06/23 PRE-OP DIAGNOSIS: Right shoulder posterior labral tear/instability POST-OP DIAGNOSIS: same PROCEDURE: Right: 1. Arthroscopic labral repair/stabilization, CPT #58246: This involved suture anchor repair of the posterior capsule and labrum The assistant football coach was medically required in order to help assist in techniques above, which require positioning the arm, holding the arthroscope, and manipulating multiple instruments and sutures at the same time. This cannot be done without the help of an experienced assistant football coach. SURGEON: Waqar Kelly CAREER ORIENTATION TEACHER: Corbin Fontanez ANESTHESIA TYPE: Local By Surgeon and General LMA/ETT Refer to Anesthesia Record ESTIMATED BLOOD LOSS: 5 PATHOLOGY: none sent COMPLICATIONS: None Patient was transported to: PACU Patient's condition: stable Implants: Arthrex: 2.9mm PushLock x2 Indications: The patient was diagnosed with the above conditions and appropriately indicated for surgical intervention. Please see complete medical record for details. Findings: Exam under anesthesia: Full range of motion, no anterior instability, positive posterior Priya maneuver with subluxation, no dislocation, but obvious mechanical click Glenohumeral joint: Obvious posterior inferior labral tear with free edge loose flap. No anterior or superior labral tearing. Intact articular cartilage. Intact supraspinatus and subscapularis. Intact biceps. Procedure Description: In the operating room, general anesthesia was induced. Bilateral shoulders were examined. The patient was positioned in the beachchair position. All bony prominences were well-padded. Preoperative antibiotics were administered. The shoulder was prepped and draped in the usual sterile fashion. The correct patient, procedure, and side of the procedure were all verified prior to incision. Starting through the posterior portal a standard complete diagnostic arthroscopy was performed of the glenohumeral joint including inspection of the long head of the biceps, anterior and superior labrum, subscapularis tendon, supraspinatus and infraspinatus tendons, and axillary recess. The glenoid and humeral head cartilage as well as the posterior labrum were inspected from an anterior viewing portal. Significant findings and interventions noted above. There was an isolated posterior posterior inferior labral tear. A rigid cannula was inserted in the posterior portal. An accessory posterior inferior portal was made for the repair. While viewing from the front, the posterior labral flap was debrided to a stable labral margin. The cartilage labrum and capsule were inspected. The zone of injury was prepared with elevators and rasps. Any cyst was indirectly decompressed. The 90 degree lasso was used to shuttle a suture tape FiberLink about the posterior inferior margin of the tear, eccentric drill used to prepare for the anchor, and the repair suture loaded in nicely secured to a push lock anchor. This was repeated at the posterior aspect of the repair. The repair zone was well secured with good capsular labral tissue and stable through testing. The shoulder was drained of arthroscopic fluid. All portal sites were copiously irrigated. These incisions were closed using 3-0 Monocryl in a buried fashion and then covered with Mastisol, Steri-Strips, Xeroform, dry gauze, and ABDs. The dressings were covered and secured with Medipore tape. The operative extremity was placed into a sling for immobilization. The patient awoke from anesthesia without complication and was transferred to the recovery room in a stable condition.
[2023-11-06] MEDS: ceFAZolin 2 GM/50 ML BAG IVPB (08:16)
[2023-11-06] MEDS: TRANEXAMIC ACID/SOD. CHL. 1,000 MG/100 ML BAG 600 MG IVPB (08:20)
[2023-11-06] MEDS: Bupivacaine 0.25% Pres-Free W/EPI 30 ML VIAL (08:53)
[2023-11-06] MEDS: EPINEPHrine 10 MG/10 ML ML (09:13)
[2023-11-06] MEDS: fentaNYL 100 MCG/2 ML VIAL IVP (09:56)
[2023-11-06] MEDS: Normal Saline 10 ML VIAL IJ (10:23)
[2023-11-06] MEDS: HYDROmorphone 2 MG/ML SYR IVP ×2 (10:23→10:37)
[2023-11-06] MEDS: Droperidol 5 MG/2 ML VIAL 0.625 MG IVP (12:24)
[2023-11-06] MEDS: Normal Saline Flush 10 ML SYR IV (12:24)
--- NOTE | 2023-11-06 13:37 | W.ANESPOSTOP ---
Postoperative Evaluation Date, Time and Location Date Performed: 11/06/23 Time Performed: 13:10 Patient Location: Day Surgery Unit Vital Signs Most Recent Imported Vital Signs: Most Recent Vital Signs Temp Pulse Resp BP Pulse Ox 36.8 C 85 18 111/69 99 11/06/23 12:29 11/06/23 12:29 11/06/23 12:29 11/06/23 12:29 11/06/23 12:29 Pain Score Most Recent Pain Score: Most Recent Pain Score Pain Level 2 11/06/23 12:29 Assessment Mental Status: Awake (Alert & Oriented to Patient Baseline) Airway and Respiratory Function: Patent airway with normal (patient baseline) respiratory exam Cardiovascular Function: Hemodynamically Stable Hydration Status: Adequately Hydrated Nausea & Vomiting: Active Nausea or Vomiting Present Nausea and Vomiting Management: Nausea and vomiting active, being addressed with medication Pain: Pain is tolerable per patient Peripheral Nerve Block: Patient did not receive a nerve block
== END 2023-11-06 18:18 | disposition home or self-care (01) ==
PROVIDERS: Visit Provider Student in an Organized Health Care Education/Training Program
PROC: (CPT 29805; principal; 2023-11-06 07:45)
DX: S43.431A Superior glenoid labrum lesion of right shoulder, initial encounter (principal); M25.311 Other instability, right shoulder; X58.XXXA Exposure to other specified factors, initial encounter
CPT/HCPCS: 29806; C9290; J0131; J0665; J0690; J1100; J1170; J1171; J1790; J1805; J1885; J2001; J2250; J2371; J2405; J2704; J3010

== ENCOUNTER 2024-04-07 19:59 | Outpatient (REF) | payer SELFPAY ==
[2024-04-07 20:03] LABS: Abs Immature Grans 0.02 10^3/uL (0.0-0.06); Absolute Basophil Count 0.06 10^3/uL (0.0-0.2); Absolute Eosinophil Count 0.11 10^3/uL (0.0-0.7); Absolute Lymphocyte Count 2.04 10^3/uL (1.2-3.4); Absolute Monocyte Count 0.75 10^3/uL (0.1-0.8); Absolute Neutrophil Count 4.11 10^3/uL (1.2-6.7); Basophils % 0.8 %; Eosinophils % 1.6 %; HCT 47.9 % (40.0-50.0); HGB 16.7 g/dL (13.5-17.5); Immature Grans % 0.3 %; Lymphocytes % 28.8 %; MCHC 34.9 % (32.0-36.0); MCV 86 fL (80-95); MPV 11.6 fL (8.0-11.0); Monocytes % 10.6 %; Neutrophils % 57.9 %; Platelet Count 213 10^3/uL (130-400); RBC 5.57 10^6/uL (4.36-5.78); RDW 11.6 % (11.8-14.1); RDW-SD 36.3 fL; WBC 7.09 10^3/uL (4.4-10.8)
[2024-04-07 20:20] LABS: ALT 89 U/L (16-63); AST 42 U/L (15-37); Albumin 4.6 g/dL (3.4-5.0); Alkaline Phosphatase 94 U/L (46-116); Anion Gap 4.1 mmol/L (3-11); BUN 10 mg/dL (7-18); Bilirubin, Total 1.68 mg/dL (0.2-1.0); CO2 33.9 mmol/L (21.0-32.0); Calcium 9.4 mg/dL (8.5-10.1); Chloride 105 mmol/L (98-107); Estimated GFR 107.78 (mL/min/1.73m2); Glucose 81 mg/dL (74-106); Potassium 4.1 mmol/L (3.5-5.1); Sodium 143 mmol/L (136-145); TSH 1.26 uIU/mL (0.36-3.74); Total Protein 7.8 g/dL (6.4-8.2)
== END 2024-04-07 20:00 | disposition home or self-care (01) ==
LOC: NCHCN 19:59
PROVIDERS: Visit Provider Family Medicine
DX: I49.9 Cardiac arrhythmia, unspecified (principal)
CPT/HCPCS: 80053; 84443; 85025

== ENCOUNTER 2024-12-09 15:27 | Outpatient (CLI) | payer BC, SELFPAY ==
--- NOTE | 2024-12-09 12:30 | DI.RAD_ITS ---
Exam(s) XR ANKLE LT COMPLETE EXAM: XR ANKLE LT COMPLETE CLINICAL HISTORY: eval fx M25.572 PAIN LEFT ANKLE TECHNIQUE: 2D digital imaging was performed of the left ankle. Three images were obtained. AP, lateral and oblique views were obtained. COMPARISON: No exams were available for comparison FINDINGS: BONES: No acute fracture is present. No bony destructive lesion is seen. JOINTS:The ankle mortise is normally aligned. SOFT TISSUE: Normal. IMPRESSION: Unremarkable radiographs of the left ankle. DATA REPOSITORY: RADIATION DOSE DELIVERED:
== END 2024-12-09 15:47 ==
LOC: DI 15:27
PROVIDERS: Visit Provider Nurse Practitioner Family
DX: M25.572 Pain in left ankle and joints of left foot (principal)
CPT/HCPCS: 73610

== ENCOUNTER 2025-01-31 11:41 | Emergency (ER) | payer SELFPAY ==
[2025-01-31 11:47] VITALS: BP 123/85; PULSE 82; RESP 14; TEMP 36.5; O2SAT 95
[2025-01-31] MEDS: Acetaminophen 500 MG TAB 1000 MG PO (12:10)
[2025-01-31] MEDS: Ketorolac 10 MG TAB PO (12:10)
--- NOTE | 2025-01-31 12:13 | W.ED.GENAD ---
Discharge Plan Disposition Patient Disposition: Home Condition: Stable Discharge Details Clinical Impression: Rotator cuff arthropathy of right shoulder Primary Care Provider: Unknown,Unknown ED Provider: Tacos Mejia Home Meds and New Rx's Prescriptions: No Action epinephrine [EpiPen 2-Carlos] 0.3 MG/0.3 ML auto-injector 0.3 mg IM ONCE PRNQty: 1 Rx Instructions: use per allergy plan/risk management professional, one for home and one for school ibuprofen [Advil] 200 mg tablet 200 mg PO Q8H PRN Discharge Instructions Instructions: Rotator cuff injury Additional Instructions: You were seen in the emergency department for your likely rotator cuff injury of right shoulder, you are left-handed. Please follow-up with orthopedics I placed you on the follow-up list, perform pendulum exercises to keep your range of motion good in the shoulder, you did not need a sling for this injury. Please use therapeutic dosing of Tylenol (acetamenophen) & Advil (ibuprofen) in an alternating fashion as follows: Take 1000mg of Tylenol every 6 hours without missing doses- that is 4 times per day. [place] in between the Tylenol dosings, take 400-600mg of Advil also on a 6 hour schedule, that is also 4 times per day. The daily maximum dosing of Tylenol is 4000mg, and the daily maximum dosing of Advil is 2400mg. This is safe to do for weeks. Please note that some common cold medications & prescription pain medications may contain acetamenophen and you need to read OTC drug labels and factor that in to maximum daily dosings. Stand Alone Forms: Portal Information, Work Release Referrals: [facility] [Provider Group] Discharge Data Discharge Date/Time-TO BE ENTERED AT DEPARTURE: 01/31/25 13:21 HPI General Date/Time Provider Initiated Documentation: 01/31/25 11:58. HPI Narrative: 25 year-old male presents to ED today by POV/ambulating with a chief complaint of R shoulder pain and popping sensation after arm-wrestling with his family last night. Patient is L-hand dominant. Quality described as feels heavier than the other shoulder, and has constant pain- similar to his other shoulder which he had labral repair surgery for 1 year ago, no radiation to numbness/tingling of distal R arm, neck pain, elbow pain, clavicle pain. Severity is described as moderate. Palliating factors include nothing specific attempted. Provoking factors include lifting his shoulder. Patient not anticoagulated. Related Data Home Medications Medication Instructions Recorded Confirmed epinephrine 0.3 mg/0.3 mL 0.3 mg IM ONCE PRN ##1 10/08/16 01/31/25 injection, auto-injector (EpiPen 2-Carlos) ibuprofen 200 mg tablet (Advil) 200 mg PO Q8H PRN 11/04/23 01/31/25 Allergies Allergy/AdvReac Type Severity Reaction Status Date / Time venom-honey bee (bee venom Allergy Severe BREATHING Verified 01/31/25 11:53 (honey bee)) PROBLEMS General Stated Complaint: Orthopedic LEOBARDO: 4 Review of Systems All systems reviewed & are unremarkable except as noted in HPI and below Exam Narrative Exam Narrative: GENERAL APPEARANCE: Well-nourished, non-toxic, awake and alert, atraumatic, no acute distress. SKIN: Warm, pink, dry, intact, without rashes/lesions/ulcerations. HEAD: Normocephalic, atraumatic, normal hair distribution for gender/age. EYES: Normal conjunctiva, no exudates on lids/lashes. ENT: Nares patent, no circumoral cyanosis, no facial swelling NECK: Supple, trachea midline, painless cervical ROM. LUNGS/CHEST: Non-labored respirations, normal A/P diameter, symmetrical expansion, no chest wall deformity HEART (CV/PV): Regular rate, R radial pulse 2+, no peripheral edema, no JVD. ABDOMEN: Soft, non-distended, no guarding. MSK: Tenderness to the right shoulder without squared off appearance or ecchymosis, right radial pulse 2+, intake nurse strength 5/5, sensation intact, no clavicle tenderness or crepitus, speeds and empty can positive in the right arm, no cyanosis, spine midline without tenderness, normal curvature. NEURO: Mental Status AAOx4 - alert to person, place, time, events No facial droop, no forehead involvement. Motor: No focal weakness save for acute R UE injury Sensory: sensation intact to light touch globally. Gait normal: patient ambulated without ataxia into ED room. PSYCH: euthymic, cooperative, pleasant, appropriate speech Course Vital Signs Vital signs: Vital Signs Temperature 36.5 C 01/31/25 11:47 Pulse 82 01/31/25 11:47 Respiratory Rate 14 01/31/25 11:47 Blood Pressure 123/85 01/31/25 11:47 Pulse Oximetry 95 01/31/25 11:47 Temperature 36.5 C 01/31/25 11:47 Temperature Source Oral 01/31/25 11:47 Pulse 82 01/31/25 11:47 Respiratory Rate 14 01/31/25 11:47 Blood Pressure 123/85 01/31/25 11:47 Blood Pressure Position Sitting 01/31/25 11:47 Pulse Oximetry 95 01/31/25 11:47 Oxygen Delivery Method Room Air 01/31/25 11:47 Oxygen Flow Rate 0 01/31/25 11:47 Pain Level 5 01/31/25 12:04 Medical Decision Making This dictation utilizes [id number] dictation software and may contain unedited grammatical errors. 25 year-old male presents to ED today by POV/ambulating with a chief complaint of R shoulder pain and popping sensation after arm-wrestling with his family last night. Patient is L-hand dominant. Quality described as feels heavier than the other shoulder, and has constant pain- similar to his prior injury which he had labral repair surgery for 1 year ago, no radiation to numbness/tingling of distal R arm, neck pain, elbow pain, clavicle pain. Severity is described as moderate. Palliating factors include nothing specific attempted. Provoking factors include lifting his shoulder. Patients' medical history: Various orthopedic injuries. Family and social history: Noncontributory. Pertinent exam findings / vital signs include diffuse tenderness around the right shoulder without any swelling or squared off appearance, no ecchymosis, intake nurse strength 5/5, right radial pulse 2+, able to flex and extend the elbow, benign cardiopulmonary status, speeds and empty can positive in the right arm. Differential / pathologies of concern include rotator cuff arthropathy, sprain, glenohumeral injury, fracture. Diagnostic studies of: - X-ray R shoulder-no fractures seen. Interventions of: - Tylenol and Toradol, Ortho referral list. ED Course/Assessment/Plan: 25-year-old male injured his nondominant shoulder last night while he was arm wrestling with his family member after a few beers he heard and felt a popping sensation in his shoulder feels heavier than he usually does, he has surgical history to the shoulder, encouraged him to perform pendulum exercises and RICE therapy as well as adequate dosing of Tylenol and ibuprofen and to follow-up with orthopedics for likely rotator cuff arthropathy, strict return criteria for any neurovascular compromise of the arm. Findings not consistent with fracture or neurovascular compromise. Disposition of rotator cuff arthropathy of right shoulder. Patient verbalized understanding of the plan and return to ED criteria and engaged in shared decision making. Medical Records Medical records reviewed: Yes I reviewed the patient's medical records. Imaging Data Radiologic Study: Attestation: I personally reviewed and interpreted this imaging study as follows: Imaging: X-Ray Radiologist's impression: EXAM: XR SHOULDER RT COMPLETE 2+V CLINICAL HISTORY: R shoulder pain. TECHNIQUE: 2D digital imaging was performed. COMPARISON: CR XR SHOULDER RT COMPLETE 2+V from 07/14/2023 FINDINGS: Five views No evidence of acute fracture or dislocation nor abnormal soft tissue calcifications in the subacromial space is not diminished. There are now lucencies in the inferior half of the osseous glenoid fossa consistent with interval labral repair surgery. There is no joint space narrowing nor osteophytes in the glenohumeral joint. No loose intra-articular bodies. Bone density normal. No osseous lesions AC joint and ipsilateral clavicle appear unremarkable IMPRESSION: Compared to June 2023 there appears to have been interval labral repair surgery. There are no acute osseous findings in the shoulder at this time. There are no degenerative changes. No loose intra-articular calcified bodies evident. PFSH All Active Problems (Updated 01/31/25 @ 13:12 by PAULIE Burger) Rotator cuff arthropathy of right shoulder (Acute) Right shoulder pain (Acute) Instability of right shoulder joint (Acute) Tear of right glenoid labrum (Acute 07/14/23) COVID-19 (Acute) Fracture of metacarpal base of right hand, closed (Acute 06/01/19) Routine child health exam (Acute 08/05/11) Normal weight, pediatric, BMI 5th to 84th percentile for age (Acute 11/03/14) Bee sting allergy (Acute 11/19/16) Closed displaced fracture of middle phalanx of left little finger (Acute 12/10/17) Medical History Constipation Bee sting allergy swelling and resp symptoms- has epipen Dental caries Closed fracture of nasal bones closed reduction 12/07/2009 Right wrist fracture Surgical History History of arthroscopy of both knees History of rhinoplasty Repair, Dental Caries Circumcision Family History Father Asthma Other Personal history of malignant neoplasm Other Personal history of malignant neoplasm Grandfather Cerebrovascular disease Social History Smoking/Tobacco Use Status: Never Smoking risk assessment performed?: Yes Alcohol Intake: current Alcohol Intake frequency: a few times a week Alcohol type: beer Drug use: Rarely Substance use type: does not use and marijuana Details: alcohol: t-3, Housing: house Current gender identity: male Do you feel safe at home: Yes Do you feel safe in your relationship?: Yes Additional Social history: [employer] PAWSS Have you Been Recently Intoxicated or Drunk Within the Last 30 days?: Yes Have you Ever Experienced Previous Episodes of Alcohol Withdrawal?: No Have you ever Experienced Withdrawal Seizures?: No Have you ever Experienced Delirium Tremens(DT)s?: No Have you ever undergone Alcohol Rehabilitation Treatment (i.e, inpt ot outpatient treatment programs)?: No Have you ever Experienced Blackouts?: No Have you ever Combined Alcohol with other Downers within the last 90 days?: No Have you ever Combined Alcohol with any other Substance of Abuse during the last 90 days?: No Positive Blood Alcohol level on Presentation? [PCS.BAL]: No Evidence of Increased Autonomic Activity (i.e. HR>120, tremor, sweating, agitation, nausea)?: No Result: 1
--- NOTE | 2025-01-31 12:50 | DI.RAD_ITS ---
Exam(s) XR SHOULDER RT COMPLETE 2+V EXAM: XR SHOULDER RT COMPLETE 2+V CLINICAL HISTORY: R shoulder pain. TECHNIQUE: 2D digital imaging was performed. COMPARISON: CR XR SHOULDER RT COMPLETE 2+V from 07/14/2023 FINDINGS: Five views No evidence of acute fracture or dislocation nor abnormal soft tissue calcifications in the subacromial space is not diminished. There are now lucencies in the inferior half of the osseous glenoid fossa consistent with interval labral repair surgery. There is no joint space narrowing nor osteophytes in the glenohumeral joint. No loose intra-articular bodies. Bone density normal. No osseous lesions AC joint and ipsilateral clavicle appear unremarkable IMPRESSION: Compared to June 2023 there appears to have been interval labral repair surgery. There are no acute osseous findings in the shoulder at this time. There are no degenerative changes. No loose intra-articular calcified bodies evident. DATA REPOSITORY: RADIATION DOSE DELIVERED:
== END 2025-01-31 13:21 | disposition home or self-care (01) ==
LOC: ER 13:26
PROVIDERS: Emergency Provider Physician Assistant
DX: M12.811 Other specific arthropathies, not elsewhere classified, right shoulder (principal)
CPT/HCPCS: 99283 ×2; 73030